=== PATIENT | female | born 1940 | race Caucasian/White ===

== ENCOUNTER → 2018-04-11 14:37 | Outpatient (CLI) | payer OTHER, MEDICAID, SELFPAY ==
--- NOTE | 2018-04-11 | DI.MG.S_ITS ---
BILATERAL DIGITAL SCREENING MAMMOGRAM 3D/2D WITH CAD: 04/11/2018 CLINICAL: Routine screening. Family history of breast cancer. Personal history of breast cancer. Comparison is made to exams dated: 11/25/2016 mammogram, 12/16/2015 mammogram - [facility], and 12/12/2014 mammogram - [facility]. There are scattered fibroglandular elements in both breasts. Current study was also evaluated with a Computer Aided Detection (CAD) system. There are benign post operative findings in the right breast. There also are benign vascular calcifications in the left breast. There are mole markers on the left breast. No significant masses, calcifications, or other findings are seen in either breast. There has been no significant interval change. IMPRESSION: There is no mammographic evidence of malignancy. A 1 year screening mammogram is recommended. This exam was interpreted at Station ID: [id number]. NOTE: For mammograms, a report in lay terms will be sent to the patient. Approximately 15% of breast malignancies will not be visualized mammographically. In the management of a palpable breast mass, a negative mammogram must not discourage biopsy of a clinically suspicious lesion. Electronically Signed By: Faizan baron/nneka:04/12/2018 19:12:17 copy to: Yasmani Bryant letter sent: Normal Exam ACR BI-RADS Category 2: Benign Finding(s) 3342F
== END ==
PROVIDERS: Family Provider Family Medicine; PCP Family Medicine; Visit Provider Nurse Practitioner Family
DX: Z12.31 Encounter for screening mammogram for malignant neoplasm of breast (principal); Z85.3 Personal history of malignant neoplasm of breast; Z80.3 Family history of malignant neoplasm of breast
CPT/HCPCS: 77063; 77067

== ENCOUNTER → 2020-08-15 11:11 | Outpatient (CLI) | payer MEDICARE, MEDICAID, SELFPAY | PROVIDERS: Family Provider Family Medicine; PCP Family Medicine; Referring Provider Family Medicine; Visit Provider Family Medicine | DX: Z12.31 Encounter for screening mammogram for malignant neoplasm of breast (principal); Z53.8 Procedure and treatment not carried out for other reasons ==

== ENCOUNTER → 2020-09-05 13:03 | Outpatient (CLI) | payer MEDICARE, MEDICAID, SELFPAY ==
--- NOTE | 2020-09-05 13:05 | DI.MG.S_ITS ---
BILATERAL DIGITAL DIAGNOSTIC MAMMOGRAM 3D/2D: 09/05/2020 CLINICAL: Right breast tenderness and mass per doctors order. Comparison is made to exams dated: 04/11/2018 mammogram, 11/25/2016 mammogram, and 12/16/2015 mammogram - [facility]. There are scattered fibroglandular elements in both breasts. There are benign post operative findings in the right breast. No significant masses, calcifications, or other findings are seen in either breast. IMPRESSION: INCOMPLETE: NEEDS ADDITIONAL IMAGING EVALUATION There is no abnormality seen in the right breast to correspond with the palpable abnormality, however, ultrasound is recommended. Targeted ultrasound is recommended for further evaluation, which will be scheduled immediately following this exam. This exam was interpreted at Station ID: [id number]. NOTE: For mammograms, a report in lay terms will be sent to the patient. Approximately 15% of breast malignancies will not be visualized mammographically. In the management of a palpable breast mass, a negative mammogram must not discourage biopsy of a clinically suspicious lesion. Electronically Signed By: Geremias lorenzana/nneka:09/05/2020 13:50:25 copy to: Yasmani Bryant ACR BI-RADS Category 0: Incomplete [id number]
--- NOTE | 2020-09-05 13:05 | DI.US.S_ITS ---
LIMITED ULTRASOUND OF RIGHT BREAST: 09/05/2020 CLINICAL: Palpable right breast lump x 2 felt by clinician. Pain. Comparison is made to exams dated: 09/05/2020 mammogram, 04/11/2018 mammogram, 11/25/2016 mammogram, and 12/16/2015 mammogram - [facility]. Real-time ultrasound of the right breast 2 o'clock and 6 o'clock regions was performed. Sawant scale images of the real-time examination were reviewed. No significant abnormalities were seen sonographically in the right breast. IMPRESSION: NEGATIVE There is no sonographic evidence of malignancy. There is no abnormality seen in the right breast to correspond with the palpable abnormality, however, clinical correlation is recommended. A 1 year screening mammogram is recommended. This exam was interpreted at Station ID: [id number]. Electronically Signed By: Geremias lorenzana/nneka:09/05/2020 14:02:18 copy to: Yasmani Bryant letter sent: Clinical Evaluation Ultrasound BI-RADS: 1 Negative
== END ==
PROVIDERS: Family Provider Family Medicine; PCP Family Medicine; Referring Provider Family Medicine; Visit Provider Family Medicine
DX: R92.8 Other abnormal and inconclusive findings on diagnostic imaging of breast (principal); N61.0 Mastitis without abscess
CPT/HCPCS: 76642; 77066; G0279

== ENCOUNTER 2021-03-12 14:24 | Outpatient (RCR) | payer MEDICARE, MEDICAID, SELFPAY ==
--- NOTE | 2021-03-12 16:00 | PT.OPPOC ---
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) Frequency of micturition (03/12/21) Nocturia (03/12/21) Visit Care Team Role Provider Type Yunior Ruiz DO Family Provider Physician Primary Care Provider Specialty: Family Practice Address: [address] [place] [address], [id number] Email: [email or web address] Gilbert Owen DO Attending Provider Physician Referring Provider Specialty: [facility] Address: [address] [place] [address], [address] Email: Plan Of Care PT-OP-T Assessment and Plan Start: 02/24/21 10:38 Freq: Status: Active Protocol: Document 03/12/21 14:30 AMB (Rec: 03/16/21 11:26 AMB [email or web address]) Physical Therapy Assessment Rehab Potential Rehabilitation Potential Fair Evaluation Complexity Number of Personal Factors/Comorbidities 1-2 Number of Body Systems Impaired 4 or More Clinical Presentation at Evaluation Evolving Impairments Impairments Activity Tolerance,Functional Activities,Functional Mobility ,Strength Goals One Impairment incontinence Short Term Goal (STG) Bri Mckay will be on a bathroom schedule to decrease urinary and fecal incontinence. STG Duration 4 weeks Fpc Goal (LTG) Bri Mckay's will be independent with behavioral changes to assist her with her continence (reduced dairy, increased fluid, ILU massage). LTG Duration 8 weeks Assessment Summary Assessment Deferred an internal assessment today for a number of reasons. Due to Bri Mckay's progressive dementia, she is really unable to consent to an internal assessment. When asked to contract her pelvic floor muscles (both this therapist and her attempted to use a wide range of verbal cues) she was completely unable to understand the concept. This therapist did provide education to Bri Mckay's regarding a set bathroom schedule of every 1-2 hours, decreasing fluid intake in the evenings to decrease nocturia , and using alternate laxatives rather than bowel irritants (milk) to help Bri Mckay have a bowel movement if she does become constipated. Also provided with a written HEP of pelvic floor strengthening so that Bri Mckay can do those exercises with the physical therapist that she has on [facility]. Physical Therapy Plan Hold Physical Therapy Reason For Hold On hold due to pt living on [place], Next Visit Focus/Plan Next Visit Plan Pt on hold for now, if and pt would like further treatment, treatment would consist of behavioral (diet/ toileting timing) changes that her can institute and instruction in ILU massage for constipation, instruction in fluid consumption, etc. Pt is not really a candidate for pelvic floor strengthening due to progressive nature of her dementia. Electronically Signed by: Samia Vazquez, PT 03/16/21 [id number] Please Sign and Return: I have reviewed this Plan of Care and certify that the skilled therapy services above are required to meet the patient?s needs. Physician Signature Date Printed Name and Credentials Clinical Instructor Signature Printed Name and Credentials
--- NOTE | 2021-03-12 16:00 | PT.OIE ---
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) Frequency of micturition (03/12/21) Nocturia (03/12/21) Past Medical History (Last Updated 01/15/21 @ 13:13 by Gilbert Owen DO) Breast cancer (~2008) Dementia (~2016) Effusion, right knee Hearing loss (~1979) History of breast surgery (~2010) History of urinary incontinence (~1989) Irritable bowel syndrome (~1999) Mastitis, right, acute Measles (~1949) Multiple sclerosis (02/16/03) Mumps (~1950) Pelvic floor dysfunction in female S/P hysterectomy Skin cancer (~2007) Tear of meniscus of right knee Past Surgical History (Last Reviewed 06/18/20 @ 15:29 by Meaghan Espinal MD) Anesthesia History of breast surgery (~2010) S/P hysterectomy Visit Care Team Role Provider Type Yunior Ruiz DO Family Provider Physician Primary Care Provider Specialty: Family Practice Address: [address] [place] [address], [address] Email: [email or web address] Attending Provider Physician Referring Provider Specialty: [facility] Address: [address] [place] [address], [address] Email: Physical Therapy Initial Evaluation PT-OP-A Visit Information Start: 02/24/21 10:38 Freq: Status: Active Protocol: Document 03/12/21 14:30 AMB (Rec: 03/12/21 16:29 AMB [email or web address]) Out-Patient Physical Therapy Visit Information Visit Information Visit Type Initial Evaluation Visit Start Time 14:30 Visit Stop Time 15:15 Total Visit Minutes 30 Visit Number 1 PT-OP-B Current Condition Start: 02/24/21 10:38 Freq: Status: Active Protocol: Document 03/12/21 14:30 AMB (Rec: 03/16/21 11:17 AMB [email or web address]) Current Condition History of Current Condition Onset Date chronic Current Complaints incontinence fecal and urinary History of Current Condition Bri's provides all of the history as he is her caregiver. She has dementia. This therapist attempted to engage with her but she was unable to undertand why she was in physical therapy. Bri has a long history of MS and has been self catheterizing 2x /day for the past 50 years. She does have a recent history of UTI. She also has IBS, which for her is a mixture of constipation and diarrhea. Her does report that she used to say she was allergic to dairy, but he does feed her dairy and [place]uv[place] food now if she gets constipated to break the damn . His biggest concern is that she is on the toilet multiple times per day, sometimes every hour, but even with that she continues to have incontinence both urinary and fecal. She has urinary incontinence at night, and sometimes wets through the many pads they put down on the bed and that she wears. He states that they are attending PT because their son wanted them to. Prior Functional Status Baseline Function- ADL's Needs Assist Baseline Function- Mobility Needs Assist Personal Factors Other Personal Factors That May Effect Dementia, MS, long history of Therapy/Recovery pessary usage, lives in the [facility] PT-OP-T Assessment and Plan Start: 02/24/21 10:38 Freq: Status: Active Protocol: Document 03/12/21 14:30 AMB (Rec: 03/16/21 11:26 AMB [email or web address]) Physical Therapy Assessment Rehab Potential Rehabilitation Potential Fair Evaluation Complexity Number of Personal Factors/Comorbidities 1-2 Number of Body Systems Impaired 4 or More Clinical Presentation at Evaluation Evolving Impairments Impairments Activity Tolerance,Functional Activities,Functional Mobility ,Strength Goals One Impairment incontinence Short Term Goal (STG) Bri Mckay will be on a bathroom schedule to decrease urinary and fecal incontinence. STG Duration 4 weeks Custodial Goal (LTG) Bri Mckay's will be independent with behavioral changes to assist her with her continence (reduced dairy, increased fluid, ILU massage). LTG Duration 8 weeks Assessment Summary Assessment Deferred an internal assessment today for a number of reasons. Due to Bri Mckay's progressive dementia, she is really unable to consent to an internal assessment. When asked to contract her pelvic floor muscles (both this therapist and her attempted to use a wide range of verbal cues) she was completely unable to understand the concept. This therapist did provide education to Bri Mckay's regarding a set bathroom schedule of every 1-2 hours, decreasing fluid intake in the evenings to decrease nocturia , and using alternate laxatives rather than bowel irritants (milk) to help Bri Mckay have a bowel movement if she does become constipated. Also provided with a written HEP of pelvic floor strengthening so that Bri Mckay can do those exercises with the physical therapist that she has on [facility]. Physical Therapy Plan Hold Physical Therapy Reason For Hold On hold due to pt living on [place], Next Visit Focus/Plan Next Visit Plan Pt on hold for now, if and pt would like further treatment, treatment would consist of behavioral (diet/ toileting timing) changes that her can institute and instruction in ILU massage for constipation, instruction in fluid consumption, etc. Pt is not really a candidate for pelvic floor strengthening due to progressive nature of her dementia.
--- NOTE | 2021-03-12 16:00 | PT.OPPOC ---
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) Frequency of micturition (03/12/21) Nocturia (03/12/21) Visit Care Team Role Provider Type Yunior Ruiz DO Family Provider Physician Primary Care Provider Specialty: Family Practice Address: [address] [place] [address], [address] Email: [email or web address] Gilbert Owen DO Attending Provider Physician Referring Provider Specialty: [facility] Address: [address] [place] [address], [address] Email: Plan Of Care PT-OP-T Assessment and Plan Start: 02/24/21 10:38 Freq: Status: Active Protocol: Document 03/12/21 14:30 AMB (Rec: 03/16/21 11:26 AMB [email or web address]) Physical Therapy Assessment Rehab Potential Rehabilitation Potential Fair Evaluation Complexity Number of Personal Factors/Comorbidities 1-2 Number of Body Systems Impaired 4 or More Clinical Presentation at Evaluation Evolving Impairments Impairments Activity Tolerance,Functional Activities,Functional Mobility ,Strength Goals One Impairment incontinence Short Term Goal (STG) Bri Mckay will be on a bathroom schedule to decrease urinary and fecal incontinence. STG Duration 4 weeks Longterm Goal (LTG) Bri Mckay's will be independent with behavioral changes to assist her with her continence (reduced dairy, increased fluid, ILU massage). LTG Duration 8 weeks Assessment Summary Assessment Deferred an internal assessment today for a number of reasons. Due to Bri Mckay's progressive dementia, she is really unable to consent to an internal assessment. When asked to contract her pelvic floor muscles (both this therapist and her attempted to use a wide range of verbal cues) she was completely unable to understand the concept. This therapist did provide education to Bri Mckay's regarding a set bathroom schedule of every 1-2 hours, decreasing fluid intake in the evenings to decrease nocturia , and using alternate laxitives rather than bowel irritants (milk) to help Bri Mckay have a bowel movement if she does become constipated. Also provided with a written HEP of pelvic floor strengtheing so that Bri Mckay can do those exercises with the physical therapist that she has on [facility]. Physical Therapy Plan Frequency and Duration Frequency of Treatment 1x/Week Duration of Treatment 12 weeks Plan of Care Start Date 03/12/21 Plan of Care End Date 06/04/21 Therapeutic Interventions Therapeutic Interventions Home Exercise Program,Manual Therapy,Neuromuscular Re- education,Self-Care/Home Management,Therapeutic Activities,Therapeutic Exercises Hold Physical Therapy Reason For Hold On hold due to pt living on [place], Next Visit Focus/Plan Next Visit Plan Pt on hold for now, if and pt would like further treatment, treatment would consist of behavioral (diet/ toileting timing) changes that her can institute and instruction in ILU massage for constipation, instruction in fluid consumption, etc. Pt is not really a candidate for pelvic floor strengthening due to progressive nature of her dementia. Plan of Care Dates Plan of Care Start Date 03/12/21 Plan of Care End Date 06/04/21 Electronically Signed by: Samia Vazquez, PT 03/16/21 [id number] Please Sign and Return: I have reviewed this Plan of Care and certify that the skilled therapy services above are required to meet the patient?s needs. Physician Signature Date Printed Name and Credentials Clinical Instructor Signature Printed Name and Credentials
--- NOTE | 2021-04-07 09:08 | PT.OPDS ---
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) Frequency of micturition (03/12/21) Nocturia (03/12/21) Visit Care Team Role Provider Type Ynuior Ruiz DO Family Provider Physician Primary Care Provider Specialty: Family Practice Address: [address] [place] [address], [address] Email: Gilbert Owen DO Attending Provider Physician Referring Provider Specialty: [facility] Practice Address: [address] [place] [address], [address] Email: Visit Number Visit Number 1 Discharge Summary PT-OP-B Current Condition Start: 02/24/21 10:38 Freq: Status: Active Protocol: Document 03/12/21 14:30 AMB (Rec: 03/16/21 11:17 AMB [email or web address]) Current Condition History of Current Condition Onset Date chronic Current Complaints incontinence fecal and urinary History of Current Condition Bri's provides all of the history as he is her caregiver. She has dementia. This therapist attempted to engage with her but she was unable to undertand why she was in physical therapy. Bri has a long history of MS and has been self catheterizing 2x /day for the past 50 years. She does have a recent history of UTI. She also has IBS, which for her is a mixture of constipation and diarrhea. Her does report that she used to say she was allergic to dairy, but he does feed her dairy and [place]ian food now if she gets constipated to break the damn . His biggest concern is that she is on the toilet multiple times per day, sometimes every hour, but even with that she continues to have incontinence both urinary and fecal. She has urinary incontinence at night, and sometimes wets through the many pads they put down on the bed and that she wears. He states that they are attending PT because their son wanted them to. Prior Functional Status Baseline Function- ADL's Needs Assist Baseline Function- Mobility Needs Assist Personal Factors Other Personal Factors That May Effect Dementia, MS, long history of Therapy/Recovery pessary usage, lives in the [facility] PT-OP-T Assessment and Plan Start: 02/24/21 10:38 Freq: Status: Active Protocol: Document 04/07/21 09:02 AMB (Rec: 04/07/21 09:08 AMB [email or web address]) Physical Therapy Assessment Assessment Summary Assessment Sera was put on hold after her evaluation, but has not scheduled more appointments therefore she is discharged at this time. Pt's might be interested in a new referral if she gets in to assisted living. Physical Therapy Plan Discharge Physical Therapy Discharge Reasons No Longer Attending PT
== END 2021-06-24 09:45 ==
LOC: PHYS 14:24
PROVIDERS: Family Provider Family Medicine; PCP Family Medicine; Referring Provider Family Medicine; Visit Provider Family Medicine
DX: M62.89 Other specified disorders of muscle (principal)
CPT/HCPCS: 97162

== ENCOUNTER → 2022-03-19 14:13 | Outpatient (CLI) | payer MEDICARE, MEDICAID, SELFPAY ==
--- NOTE | 2022-03-19 14:14 | DI.MG.S_ITS ---
BILATERAL DIGITAL SCREENING MAMMOGRAM 3D/2D WITH CAD: 03/19/2022 CLINICAL: Routine screening. Comparison is made to exams dated: 09/05/2020 ultrasound, 09/05/2020 mammogram, 04/11/2018 mammogram, and 11/25/2016 mammogram - [facility]. There are scattered areas of fibroglandular density in both breasts (category b / 25%-50% glandular tissue). Current study was also evaluated with a Computer Aided Detection (CAD) system. There are benign post operative findings in the right breast. No significant masses, calcifications, or other findings are seen in either breast. There has been no significant interval change. IMPRESSION: BENIGN There is no mammographic evidence of malignancy. A 1 year screening mammogram is recommended. This exam was interpreted at Station ID: [id number]. NOTE: For mammograms, a report in lay terms will be sent to the patient. Approximately 15% of breast malignancies will not be visualized mammographically. In the management of a palpable breast mass, a negative mammogram must not discourage biopsy of a clinically suspicious lesion. Electronically Signed By: Geremias lorenzana/nneka:03/19/2022 15:33:09 copy to: Yasmani Bryant letter sent: Normal Exam ACR BI-RADS Category 2: Benign Finding(s) 3342F
== END ==
PROVIDERS: Family Provider Family Medicine; PCP Family Medicine; Referring Provider Physician Assistant Medical; Visit Provider Physician Assistant Medical
DX: M81.0 Age-related osteoporosis without current pathological fracture (principal); Z12.31 Encounter for screening mammogram for malignant neoplasm of breast; Z13.820 Encounter for screening for osteoporosis; Z78.0 Asymptomatic menopausal state; F03.90 Unspecified dementia, unspecified severity, without behavioral disturbance, psychotic disturbance, mood disturbance, and anxiety; G35 Multiple sclerosis
CPT/HCPCS: 77063; 77067; 77080

== ENCOUNTER 2022-03-25 08:54 | Emergency (ER) | payer MEDICARE, MEDICAID, SELFPAY ==
[2022-03-25 09:18] VITALS: BP 173/79; PULSE 87; RESP 15; TEMP 35.8; O2SAT 96; BMI 23.9
--- NOTE | 2022-03-25 11:42 | ED.ABDPAIN ---
HPI - Abdominal Pain General Chief Complaint: Abdominal Pain Stated Complaint: all stopped up No BM Time Seen by Provider: 03/25/22 10:32 Source: patient Mode of arrival: Wheelchair Limitations: no limitations History of Present Illness HPI narrative: This 82-year-old patient has a history of hysterectomy, and cystocele. She is been previously fitted for a pessary. About 1 month ago she developed a prolapsed rectum. The rectum has been out at least a couple times. She underwent reduction in [facility] yesterday. She has been seeing an dedicated truck driver. Her PCM referred her to [facility]. She was on the [employer] head at home yesterday, she had diarrhea and incontinence. She is not been bleeding. At this time she is no abdominal pain. Related Data Home Medications Medication Instructions Recorded Confirmed CALCIUM CARBONATE (TUMS ) 500 mg PO QDAY ##0 06/23/12 12/30/21 CHOLECALCIFEROL (VITAMIN D3) 400 unit PO QDAY ##0 06/23/12 12/30/21 (Vitamin D3) Fish Oil (Fish Oil 500 MG Softgel) 500 mg PO QDAY ##0 06/23/12 12/30/21 mometasone 0.1 % topical cream 1 brittany topical BID ##0 06/29/16 12/30/21 aspirin 81 mg tablet,delayed 81 mg PO QDAY ##0 11/05/16 12/30/21 release hydrocortisone 1 % topical cream 1 applic topical BID PRN 08/27/20 12/30/21 (Anti-Itch (hydrocortisone)) memantine 10 mg tablet 10 mg PO BID 03/05/21 12/30/21 Previous Rx's Medication Instructions Recorded oxyquinoline 0.025 %-sodium lauryl 1 ea vaginal .weekly pessary 06/18/20 sulfate 0.01 % vaginal gel maintenance #113.4 grams Booster-Total Dry Pads #1 ea 07/14/21 trospium 20 mg tablet 20 mg PO BIDAC #60 tabs 09/03/21 trospium 20 mg tablet 20 mg PO BID #180 tabs 09/05/21 donepezil 10 mg tablet 10 mg PO DAILY #90 tabs 12/03/21 allopurinol 100 mg tablet 100 mg PO DAILY #14 tabs 01/23/22 allopurinol 100 mg tablet See Rx Instructions .Route 01/23/22 .COMPLEX #90 tabs docusate sodium 100 mg capsule 100 mg PO DAILY #90 caps 03/25/22 (Colace) Allergies Allergy/AdvReac Type Severity Reaction Status Date / Time Penicillins [PENICILLINS] Allergy Mild RASH Verified 03/25/22 09:22 indomethacin AdvReac Severe do not Verified 03/25/22 09:22 dispense codeine AdvReac Unknown drowsiness Verified 03/25/22 09:22 cortisone AdvReac Unknown hives Verified 03/25/22 09:22 Review of Systems Review of Systems ROS Unobtainable: All systems reviewed & are unremarkable except as noted in HPI and below Constitutional Constitutional: Denies anorexia, Denies body ache(s), Denies chills, Reports fatigue and Denies fever(s) Cardiovascular Cardiovascular: Denies chest pain, Denies rapid heart rate and Denies dyspnea Respiratory Respiratory: Denies cough and Denies dyspnea Gastrointestinal Gastrointestinal: Denies abdominal pain, Reports diarrhea and Denies nausea Comments: Rectal prolapse as noted HPI. Genitourinary Genitourinary: Denies dysuria Musculoskeletal Musculoskeletal: Denies back pain and Denies arthralgias Integumentary/Breasts Skin/Breast: Denies rash Neurologic Neurologic: Reports system reviewed and no additional complaints, except as documented Endocrine Endocrine: Reports fatigue Hematologic/Lymphatic On Anticoagulants: No Patient History Medical History Breast cancer (~2008) Cystocele Dementia (~2017) Effusion, right knee Fecal incontinence alternating with constipation Hearing loss (~1979) History of urinary incontinence (~1989) Irritable bowel syndrome (~1999) Mastitis, right, acute Measles (~1950) Multiple sclerosis (02/16/03) Mumps (~1950) Pelvic floor dysfunction in female Skin cancer (~2007) Tear of meniscus of right knee Surgical History Anesthesia History of breast surgery (~2010) S/P hysterectomy Family History Brother Bowel obstruction Family/Other No problems noted. Social History Smoking Status: Never smoker Smoking Status: Never smoker Exam Initial Vital Signs Initial Vital Signs: Vital Signs Temperature 96.4 F L 03/25/22 09:18 Pulse Rate 87 03/25/22 09:18 Respiratory Rate 15 03/25/22 09:18 Blood Pressure 173/79 H 03/25/22 09:18 Pulse Oximetry 96 03/25/22 09:18 Oxygen Delivery Method 03/25/22 09:18 Const General: cooperative and comfortable Other: Hard of hearing HENIL Head: normocephalic and atraumatic Resp Auscultation: clear to auscultation bilaterally Cardio Rate: regular rate Rhythm: regular rhythm Heart Sounds: S1 normal, S2 normal and no murmurs GI Inspection: normal to inspection Palpation: soft, No mass and No tender Rectal Exam: visual inspection normal Other: No prolapse at this time. Rectum is normal. No masses. No impaction. Stool was heme-negative. Back/Spine/Pelvis Back: normal to inspection and No CVA tenderness Course Course Course Narrative: The patient was discussed with the on-call physician, Dr. Peter. He agrees to surgical consultation. Patient is advised to call for appointment. Vital Signs Vital signs: Vital Signs - 8 hr 03/25/22 15:05 Pulse Rate 84 Respiratory Rate 97 H Blood Pressure 171/73 H Pulse Oximetry 96 Oxygen Delivery Method Room Air Discharge Plan Departure Patient Disposition: Home Clinical Impression: Rectal prolapse Instructions: Rectal Prolapse Activity Restrictions/Additional Instructions: Colace 1 tablet daily. Definitive care for the prolapsed rectum is surgery. I have contacted Dr. Peter, a surgeon here in [place]. He would be happy to see you. Call him for an appointment. Return to the ER for fever, abdominal pain, or prolapsed rectum that will not reduce.. Prescriptions: New docusate sodium [Colace] 100 mg capsule 100 mg PO DAILY Qty: 90 0RF No Action CALCIUM CARBONATE (TUMS ) 500 mg PO QDAY Qty: 0 CHOLECALCIFEROL (VITAMIN D3) (Vitamin D3) 400 unit PO QDAY Qty: 0 Fish Oil (Fish Oil 500 MG Softgel) 500 mg PO QDAY Qty: 0 mometasone 0.1 % cream 1 brittany Topical BID Qty: 0 aspirin 81 MG tablet,delayed release (DR/EC) 81 mg PO QDAY Qty: 0 (DME) Booster-Total Dry Pads See Rx Instructions .Route .MEDSUPPLY Qty: 1 0RF Rx Instructions: As directed. [facility] #[id number] trospium 20 mg tablet 20 mg PO BID Qty: 180 3RF Rx Instructions: administer on an empty stomach donepezil 10 mg tablet 10 mg PO DAILY Qty: 90 3RF allopurinol 100 mg tablet See Rx Instructions .ROUTE .COMPLEX Qty: 90 1RF Dose Instruction: TAKE 1 TABLET DAILY Rx Instructions: TAKE 1 TABLET DAILY allopurinol 100 mg tablet 100 mg PO DAILY Qty: 14 0RF oxyquinoline-sod.lauryl sulfat 0.025-0.01 % gel 1 ea vaginal .weekly Qty: 113.4 3RF Rx Instructions: Apply 1g vaginally once weekly. memantine 10 mg tablet 10 mg PO BID hydrocortisone [Anti-Itch (HC)] 1 % cream 1 applic topical BID PRN trospium 20 mg tablet 20 mg PO BIDAC Qty: 60 0RF Referrals: Naresh Peter MD [Physician] - Yunior Ruiz DO [Primary Care Provider] - Visit Report Forms: Patient Portal/API
[2022-03-25 15:05] VITALS: BP 171/73; PULSE 84; RESP 97; O2SAT 96
== END 2022-03-25 12:10 | disposition home or self-care (01) ==
PROVIDERS: Emergency Provider Emergency Medicine; Family Provider Family Medicine; PCP Family Medicine
DX: K62.3 Rectal prolapse (principal)
CPT/HCPCS: 99281

== ENCOUNTER → 2022-05-12 13:09 | Outpatient (CLI) | payer MEDICARE, MEDICAID, SELFPAY | PROVIDERS: Family Provider Family Medicine; PCP Family Medicine; Visit Provider Family Medicine | DX: N30.01 Acute cystitis with hematuria (principal) | CPT/HCPCS: 87077; 87086 ==

== ENCOUNTER 2022-05-12 14:05 | Emergency (ER) | payer MEDICARE, MEDICAID, SELFPAY ==
[2022-05-12] VITALS (38 sets, daily range): BP systolic 101–173; BP diastolic 58–79; PULSE 72–91; RESP 13–34; TEMP 36.5–36.8; O2SAT 92–98
--- NOTE | 2022-05-12 14:33 | DI.RAD.S_ITS ---
PROCEDURE: XR CHEST 1V INDICATIONS: suspected sepsis TECHNIQUE: One view of the chest was acquired. COMPARISON: [facility], CR, XR CHEST 1 VIEW, 03/08/2021, 21:12. [facility], CR, CHEST 2 VIEW, 09/03/2006, 13:00. FINDINGS: Surgical changes and devices: Right axillary clips are seen. Cholecystectomy clips are seen. Lungs and pleura: On this semiupright portable chest examination, no large pneumothorax or large pleural effusions are seen. No focal infiltrates are seen. Low lung volumes are noted. This causes a crowded appearance to the lung markings and limits evaluation. Mediastinum: The cardiac contours are within normal limits. The aorta demonstrates calcification and tortuosity. Bones and chest wall: Age-appropriate bony degenerative changes are seen. No suspicious bony lesions. Overlying soft tissues appear unremarkable. IMPRESSION: Limited study with low lung volumes, without focal infiltrates. Dictated by: Kapil Bansal M.D. on 05/12/2022 at 13:57 Approved by: Kapil Bansal M.D. on 05/12/2022 at 13:58
[2022-05-12 14:52] LABS: INR 1.1 (0.9-1.3); Prothrombin Time 12.6 SECONDS (10.1-12.7)
[2022-05-12 14:55] LABS: PTT Partial Thromboplastin Tim 27 SECONDS (26-36)
[2022-05-12 15:01] LABS: Add Manual Diff / Slide Review NO; Basophils Absolute Auto 0 /uL (0-100); Basophils Percent Auto 0.4 % (0-2); Eosinophils Absolute Auto 0 /uL (0-450); Eosinophils Percent Auto 0.2 % (2-4); Hematocrit 38.7 % (36-46); Hemoglobin 12.8 g/dL (12.0-16.0); Lymphocytes Absolute Auto 1000 /uL (1100-4500); Lymphocytes Percent Auto 23.3 % (25-40); Mean Corpuscular Volume 90.8 fL (80-100); Monocytes Absolute Auto 400 /uL (0-900); Monocytes Percent Auto 8.9 % (3-14); Neutrophils Absolute Auto 2800 /uL (1500-7000); Neutrophils Percent Auto 67.2 % (50-75); Platelet Count 154 X10^3/uL (150-400); Red Blood Cell Count 4.26 X10^6/uL (4.0-5.2); White Blood Cell Count 4.1 X10^3/uL (4.5-11.0)
[2022-05-12 15:06] LABS: Creatine Kinase 73 U/L (30-135)
[2022-05-12 15:08] LABS: Alanine Aminotransferase 19 IU/L (<35); Albumin 4.2 g/dL (3.5-5.0); Albumin Globulin Ratio 1.1 (1.0-2.8); Alkaline Phosphatase 85 U/L (38-126); Aspartate Aminotransferase 21 IU/L (14-36); Bilirubin Total 0.5 mg/dL (0.2-1.3); Blood Urea Nitrogen 17 mg/dL (7-17); Calcium 9.2 mg/dL (8.4-10.2); Carbon Dioxide 30 mmol/L (22-32); Chloride 99 mmol/L (98-107); Estimated Glomerular Filt Rate > 60 mL/min (>60); Globulin 3.7 g/dL (1.7-4.1); Glucose 157 mg/dL (80-110); HEMOLYSIS < 15 (0-50); Lipase 63 U/L (23-300); Potassium 3.6 mmol/L (3.4-5.1); Sodium 138 mmol/L (137-145); Total Protein 7.9 g/dL (6.3-8.2)
[2022-05-12 15:19] LABS: NT-proBNP (BNP-Adult 18+) 408 pg/mL (<450); Troponin I < 0.012 ng/mL (0.01-0.034)
[2022-05-12 15:21] LABS: Lactate (Lactic Acid) 2.3 mmol/L (0.7-2.1)
--- NOTE | 2022-05-12 15:24 | PC.NURSE ---
RT at bedside
[2022-05-12 15:25] LABS: Procalcitonin 0.07 ng/mL (<0.5)
--- NOTE | 2022-05-12 15:30 | PC.NURSE ---
Lab at bedside for blood draw
[2022-05-12 15:32] LABS: Influenza A - CEPHEID Flu A NEGATIVE (NEGATIVE); Influenza B - CEPHEID Flu B NEGATIVE (NEGATIVE); Respiratory Syncytial Virus Negative (Negative)
[2022-05-12 15:37] LABS: Appearance Urine UA CLEAR; Bilirubin Urine UA NEGATIVE (NEGATIVE); Color Urine UA YELLOW; Glucose Urine UA TRACE g/dL (Negative); Ketones Urine UA TRACE (NEGATIVE); Leukocyte Esterase Urine UA TRACE (NEGATIVE); Nitrite Urine UA POSITIVE (Negative); Occult Blood Urine UA 2+ (Negative); Protein Urine UA 1+ (Negative); Urobilinogen Urine UA 0.2 E.U./dL (0.2)
[2022-05-12 15:38] LABS: pH Urine UA 5.5 (4.5-8.0)
[2022-05-12] MEDS: SODIUM CHLORIDE 0.9% 1,000 ML 1000 ML IV (15:40)
[2022-05-12 15:50] LABS: Amorphous Sediment Urine 2+; Bacteria Urine Moderate (10-30); Culture Indicated Urine Specimen Cultured; RBC Urine 1-5/HPF (0-5/HPF); Squamous Epithelial Cell Urine 1-5 /HPF (0-5/HPF); WBC Urine 5-10/HPF (0-5/HPF)
[2022-05-12 15:51] LABS: COVID-19 CEPHEID 4-PLEX PCR Negative (Negative)
--- NOTE | 2022-05-12 16:00 | PC.NURSE ---
Readjusted in the bed - no needs voiced - NAD
--- NOTE | 2022-05-12 16:00 | PC.NURSE ---
Resting quietly in NAD - no needs voiced - PWD with respirations equal and unlabored bilaterally - occasional cough noted - weak
--- NOTE | 2022-05-12 16:30 | PC.NURSE ---
Report to RODGER Lund for break relief
[2022-05-12 16:42] LABS: Reflexed Lactate in 2 Hours Y
--- NOTE | 2022-05-12 17:00 | PC.NURSE ---
Report received - assumed care of pt at this time
[2022-05-12] MEDS: cefTRIAXone 2,000 MG in SODIUM CHLORIDE 0.9% 100 ML 200 MG IV (17:19)
[2022-05-12 17:23] LABS: Lactate 2HR (Lactic Acid Rflx) 1.4 mmol/L (0.7-2.1)
--- NOTE | 2022-05-12 17:30 | PC.NURSE ---
Sitting quietly on the stretcher in NAD - awake - sitting still - no needs voiced
--- NOTE | 2022-05-12 18:11 | ED.GENADULT ---
HPI - General Adult <Torey Oliver DO - Last Filed: 05/14/22 19:46> General Chief complaint: Upper Respiratory Symptoms Stated complaint: PNE/UTI Time Seen by Provider: 05/12/22 16:39 Source: patient and EMS Mode of arrival: EMS History of Present Illness HPI narrative: 82-year-old female who arrived by EMS from [facility] for evaluation of was initially described as possible bronchitis and urinary tract infection. She does self cath. Apparently she does get frequent urinary tract infections. Unsure as when she is ever been on antibiotics in the past. She is also reportedly having a cough and shortness of breath. She did receive IM Rocephin prior to transport. Patient has a history of dementia. It is reported that she is at her baseline mental status. Here in the emergency department she has no specific complaints reported to myself. She is unsure as to who called the paramedics. Related Data Home Medications Medication Instructions Recorded Confirmed aspirin 81 mg tablet,delayed 81 mg PO QDAY ##0 11/05/16 05/12/22 release memantine 10 mg tablet 10 mg PO BID 03/05/21 05/12/22 calcium carbonate 500 mg calcium 500 mg PO DAILY 05/12/22 05/12/22 (1,250 mg) capsule cholecalciferol (vitamin D3) 10 10 mcg PO DAILY 05/12/22 05/12/22 mcg (400 unit) capsule gabapentin 100 mg capsule 100 mg PO DAILY 05/12/22 05/12/22 mirabegron 50 mg tablet,extended 50 mg PO DAILY 05/12/22 05/12/22 release 24 hr (Myrbetriq) omega-3 fatty acids 1 cap PO DAILY 05/12/22 05/12/22 Previous Rx's Medication Instructions Recorded oxyquinoline 0.025 %-sodium lauryl 1 ea vaginal .weekly pessary 06/18/20 sulfate 0.01 % vaginal gel maintenance #113.4 grams Booster-Total Dry Pads #1 ea 07/14/21 trospium 20 mg tablet 20 mg PO BIDAC #60 tabs 09/03/21 donepezil 10 mg tablet 10 mg PO DAILY #90 tabs 12/03/21 allopurinol 100 mg tablet 100 mg PO DAILY #14 tabs 01/23/22 docusate sodium 100 mg capsule 100 mg PO DAILY #90 caps 03/25/22 (Colace) azithromycin 250 mg tablet See Rx Instructions PO .COMPLEX #6 05/12/22 tabs nitrofurantoin 100 mg PO Q12H 8 days #16 caps 05/14/22 monohydrate/macrocrystals 100 mg capsule (Macrobid) Allergies Allergy/AdvReac Type Severity Reaction Status Date / Time Penicillins [PENICILLINS] Allergy Mild RASH Verified 05/12/22 15:26 indomethacin AdvReac Severe do not Verified 05/12/22 15:26 dispense codeine AdvReac Unknown drowsiness Verified 05/12/22 15:26 cortisone AdvReac Unknown hives Verified 05/12/22 15:26 Review of Systems <Torey Oliver DO - Last Filed: 05/14/22 19:46> Constitutional Constitutional: Denies fever(s) ENT Ears, Nose, Mouth, and Throat: Reports system reviewed and no additional complaints, except as documented Cardiovascular Cardiovascular: Denies chest pain Respiratory Respiratory: Reports system reviewed and no additional complaints, except as documented Gastrointestinal Gastrointestinal: Reports system reviewed and no additional complaints, except as documented Genitourinary Genitourinary: Reports system reviewed and no additional complaints, except as documented Integumentary/Breasts Skin/Breast: Reports system reviewed and no additional complaints, except as documented Neurologic Neurologic: Reports system reviewed and no additional complaints, except as documented Hematologic/Lymphatic On Anticoagulants: No Patient History <Torey Oliver DO - Last Filed: 05/14/22 19:46> Medical History Acute bronchitis Breast cancer (~2008) Cystocele Dementia (~2016) Effusion, right knee Fecal incontinence alternating with constipation Hearing loss (~1979) History of urinary incontinence (~1989) Irritable bowel syndrome (~1999) Mastitis, right, acute Measles (~1949) Multiple sclerosis (02/16/03) Mumps (~1950) Pelvic floor dysfunction in female Pessary maintenance Skin cancer (~2007) Tear of meniscus of right knee Urinary incontinence Surgical History Anesthesia History of breast surgery (~2010) S/P hysterectomy Family History Brother Bowel obstruction Family/Other No problems noted. Social History marital status: household members: spouse occupational status: previously employed Smoking Status: Never smoker alcohol intake: current Smoking Status: Never smoker alcohol intake frequency: other Substance Use Type: does not use Exam <DO Cheyenne Gibson Last Filed: 05/14/22 19:46> Initial Vital Signs Initial Vital Signs: Vital Signs Temperature 97.7 F 05/12/22 14:05 Pulse Rate 90 05/12/22 14:05 Respiratory Rate 24 05/12/22 14:05 Blood Pressure 119/58 L 05/12/22 14:05 Pulse Oximetry 94 05/12/22 14:05 Oxygen Delivery Method 05/12/22 14:05 Const General: cooperative and No ill appearing HENMT Head: normal to inspection and normocephalic Resp Effort & Inspection: normal respiratory effort Auscultation: clear to auscultation bilaterally Cardio Rate: regular rate Rhythm: regular rhythm GI Inspection: normal to inspection Other: Alva catheter in place Skin General: no rashes or lesions noted Neuro General: patient alert, patient awake and moves all extremities Speech: speech normal <Drea Meza DO - Last Filed: 05/18/22 07:11> Initial Vital Signs Initial Vital Signs: Vital Signs Temperature 97.7 F 05/12/22 14:05 Pulse Rate 90 05/12/22 14:05 Respiratory Rate 24 05/12/22 14:05 Blood Pressure 119/58 L 05/12/22 14:05 Pulse Oximetry 94 05/12/22 14:05 Oxygen Delivery Method 05/12/22 14:05 <Belem Menjivar DO - Last Filed: 05/15/22 07:25> Initial Vital Signs Initial Vital Signs: Vital Signs Temperature 97.7 F 05/12/22 14:05 Pulse Rate 90 05/12/22 14:05 Respiratory Rate 24 05/12/22 14:05 Blood Pressure 119/58 L 05/12/22 14:05 Pulse Oximetry 94 05/12/22 14:05 Oxygen Delivery Method 05/12/22 14:05 Course <DO Cheyenne Gbison Last Filed: 05/14/22 19:46> Orders Ordered: Discontinued Medications Acetaminophen (Acetaminophen 325 Mg Tablet) 650 mg PO NOW ONE Stop: 05/13/22 10:26 Last Admin: 05/13/22 11:37 Dose: 650 mg Documented By: MLM Allopurinol (Allopurinol 100 Mg Tablet) 100 mg PO DAILY [facility] Last Admin: 05/14/22 10:13 Dose: 100 mg Documented By: Admin: 05/13/22 09:55 Dose: 100 mg Documented By: MLM Aspirin (Aspirin Ec 81 Mg Tablet) 81 mg PO DAILY [facility] Last Admin: 05/14/22 08:37 Dose: 81 mg Documented By: Admin: 05/13/22 09:59 Dose: 81 mg Documented By: MLM Calcium Carbonate (Calcium Carbonate 500 Mg Tab) 500 mg PO DAILY [facility] Last Admin: 05/14/22 10:15 Dose: 500 mg Documented By: Admin: 05/13/22 09:59 Dose: 500 mg Documented By: MLGisela Docusate Sodium (Docusate 100 Mg Capsule) 100 mg PO DAILY [facility] Last Admin: 05/14/22 10:15 Dose: 100 mg Documented By: Admin: 05/13/22 09:55 Dose: 100 mg Documented By: MLGisela Donepezil HCl (Donepezil 5 Mg Tablet) 10 mg PO BEDTIME [facility] Last Admin: 05/13/22 21:08 Dose: 10 mg Documented By: Admin: 05/12/22 22:16 Dose: 10 mg Documented By: TODD Fish Oil (Fish Oil 1,000 Mg Capsule) 1,000 mg PO DAILY [facility] Last Admin: 05/14/22 10:12 Dose: 1,000 mg Documented By: Admin: 05/13/22 09:58 Dose: 1,000 mg Documented By: MLGisela Gabapentin (Gabapentin 100 Mg Capsule) 100 mg PO BEDTIME [facility] Last Admin: 05/13/22 21:08 Dose: 100 mg Documented By: Admin: 05/12/22 22:16 Dose: 100 mg Documented By: TODD Sodium Chloride (Normal Saline 0.9%) 1,000 mls @ 1,000 mls/hr IV BOLUS ONE Stop: 05/12/22 16:34 Last Infusion: 05/12/22 17:06 Dose: 0 mls/hr Documented By: Admin: 05/12/22 15:40 Dose: 1,000 mls/hr Documented By: JOHNNA Ceftriaxone Sodium 2,000 mg/ (Sodium Chloride) 100 mls @ 200 mls/hr IV NOW ONE Stop: 05/12/22 16:40 Last Infusion: 05/12/22 19:30 Dose: 0 mls/hr Documented By: Admin: 05/12/22 17:19 Dose: 200 mls/hr Documented By: TERRANCE Ceftriaxone Sodium 2,000 mg/ (Sodium Chloride) 100 mls @ 200 mls/hr IV DAILY KIM Stop: 05/14/22 09:01 Ceftriaxone Sodium 1,000 mg/ (Sodium Chloride) 100 mls @ 200 mls/hr IV DAILY KIM Stop: 05/14/22 09:01 Last Infusion: 05/14/22 09:58 Dose: 0 mls/hr Documented By: Admin: 05/14/22 08:38 Dose: 200 mls/hr Documented By: Infusion: 05/13/22 10:13 Dose: 0 mls/hr Documented By: MLGisela Admin: 05/13/22 09:58 Dose: 200 mls/hr Documented By: MELCHOR Ceftriaxone Sodium 2,000 mg/ (Sodium Chloride) 100 mls @ 200 mls/hr IV NOW ONE Stop: 05/14/22 09:23 Last Admin: 05/14/22 11:42 Dose: Not Given Documented By: TERRANCE Ceftriaxone Sodium 1,000 mg/ (Sodium Chloride) 100 mls @ 200 mls/hr IV NOW ONE Stop: 05/14/22 09:24 Last Admin: 05/14/22 11:43 Dose: Not Given Documented By: TERRANCE Memantine (Memantine Hcl 5 Mg Tablet) 10 mg PO BID [facility] Last Admin: 05/14/22 10:12 Dose: 10 mg Documented By: Admin: 05/13/22 21:08 Dose: 10 mg Documented By: Admin: 05/13/22 09:59 Dose: 10 mg Documented By: MLGisela Admin: 05/12/22 22:15 Dose: 10 mg Documented By: TODD Pantoprazole Sodium (Pantoprazole Dr 40 Mg Tablet) 40 mg PO DAILY@0700 [facility] Last Admin: 05/14/22 10:13 Dose: 40 mg Documented By: TERRANCE Vitamin D (Cholecalciferol (Vitamin D3) 400 Unit Tablet) 400 unit PO DAILY [facility] Last Admin: 05/14/22 10:14 Dose: 400 unit Documented By: Admin: 05/13/22 09:58 Dose: 400 unit Documented By: MLGisela Vital Signs Vital signs: Vital Signs - 8 hr 05/14/22 12:00 05/14/22 12:00 05/14/22 12:30 Pulse Rate 71 Respiratory Rate 24 Blood Pressure 123/57 L 124/57 L Pulse Oximetry 94 05/14/22 12:30 05/14/22 13:00 05/14/22 13:00 Pulse Rate 68 71 Respiratory Rate 24 24 Blood Pressure 116/59 L Pulse Oximetry 95 95 05/14/22 13:30 05/14/22 13:30 Pulse Rate 74 Respiratory Rate Blood Pressure 129/59 L Pulse Oximetry 94 <Drea Mzea, DO - Last Filed: 05/18/22 07:11> Orders Ordered: Discontinued Medications Acetaminophen (Acetaminophen 325 Mg Tablet) 650 mg PO NOW ONE Stop: 05/13/22 10:26 Last Admin: 05/13/22 11:37 Dose: 650 mg Documented By: MLGisela Allopurinol (Allopurinol 100 Mg Tablet) 100 mg PO DAILY [facility] Last Admin: 05/14/22 10:13 Dose: 100 mg Documented By: Admin: 05/13/22 09:55 Dose: 100 mg Documented By: MLGisela Aspirin (Aspirin Ec 81 Mg Tablet) 81 mg PO DAILY [facility] Last Admin: 05/14/22 08:37 Dose: 81 mg Documented By: Admin: 05/13/22 09:59 Dose: 81 mg Documented By: MLGisela Calcium Carbonate (Calcium Carbonate 500 Mg Tab) 500 mg PO DAILY [facility] Last Admin: 05/14/22 10:15 Dose: 500 mg Documented By: Admin: 05/13/22 09:59 Dose: 500 mg Documented By: MLGisela Docusate Sodium (Docusate 100 Mg Capsule) 100 mg PO DAILY [facility] Last Admin: 05/14/22 10:15 Dose: 100 mg Documented By: Admin: 05/13/22 09:55 Dose: 100 mg Documented By: MLGisela Donepezil HCl (Donepezil 5 Mg Tablet) 10 mg PO BEDTIME [facility] Last Admin: 05/13/22 21:08 Dose: 10 mg Documented By: Admin: 05/12/22 22:16 Dose: 10 mg Documented By: TODD Fish Oil (Fish Oil 1,000 Mg Capsule) 1,000 mg PO DAILY [facility] Last Admin: 05/14/22 10:12 Dose: 1,000 mg Documented By: Admin: 05/13/22 09:58 Dose: 1,000 mg Documented By: MELCHOR Gabapentin (Gabapentin 100 Mg Capsule) 100 mg PO BEDTIME [facility] Last Admin: 05/13/22 21:08 Dose: 100 mg Documented By: Admin: 05/12/22 22:16 Dose: 100 mg Documented By: TODD Sodium Chloride (Normal Saline 0.9%) 1,000 mls @ 1,000 mls/hr IV BOLUS ONE Stop: 05/12/22 16:34 Last Infusion: 05/12/22 17:06 Dose: 0 mls/hr Documented By: Admin: 05/12/22 15:40 Dose: 1,000 mls/hr Documented By: JOHNNA Ceftriaxone Sodium 2,000 mg/ (Sodium Chloride) 100 mls @ 200 mls/hr IV NOW ONE Stop: 05/12/22 16:40 Last Infusion: 05/12/22 19:30 Dose: 0 mls/hr Documented By: Admin: 05/12/22 17:19 Dose: 200 mls/hr Documented By: TERRANCE Ceftriaxone Sodium 2,000 mg/ (Sodium Chloride) 100 mls @ 200 mls/hr IV DAILY KIM Stop: 05/14/22 09:01 Ceftriaxone Sodium 1,000 mg/ (Sodium Chloride) 100 mls @ 200 mls/hr IV DAILY KIM Stop: 05/14/22 09:01 Last Infusion: 05/14/22 09:58 Dose: 0 mls/hr Documented By: Admin: 05/14/22 08:38 Dose: 200 mls/hr Documented By: Infusion: 05/13/22 10:13 Dose: 0 mls/hr Documented By: Admin: 05/13/22 09:58 Dose: 200 mls/hr Documented By: MELCHOR Ceftriaxone Sodium 2,000 mg/ (Sodium Chloride) 100 mls @ 200 mls/hr IV NOW ONE Stop: 05/14/22 09:23 Last Admin: 05/14/22 11:42 Dose: Not Given Documented By: TERRANCE Ceftriaxone Sodium 1,000 mg/ (Sodium Chloride) 100 mls @ 200 mls/hr IV NOW ONE Stop: 05/14/22 09:24 Last Admin: 05/14/22 11:43 Dose: Not Given Documented By: TERRANCE Memantine (Memantine Hcl 5 Mg Tablet) 10 mg PO BID [facility] Last Admin: 05/14/22 10:12 Dose: 10 mg Documented By: Admin: 05/13/22 21:08 Dose: 10 mg Documented By: Admin: 05/13/22 09:59 Dose: 10 mg Documented By: Admin: 05/12/22 22:15 Dose: 10 mg Documented By: TODD Pantoprazole Sodium (Pantoprazole Dr 40 Mg Tablet) 40 mg PO DAILY@0700 [facility] Last Admin: 05/14/22 10:13 Dose: 40 mg Documented By: TERRANCE Vitamin D (Cholecalciferol (Vitamin D3) 400 Unit Tablet) 400 unit PO DAILY [facility] Last Admin: 05/14/22 10:14 Dose: 400 unit Documented By: Admin: 05/13/22 09:58 Dose: 400 unit Documented By: MELCHOR Vital Signs Vital signs: Vital Signs - 8 hr 05/14/22 12:00 05/14/22 12:00 05/14/22 12:30 Pulse Rate 71 Respiratory Rate 24 Blood Pressure 123/57 L 124/57 L Pulse Oximetry 94 05/14/22 12:30 05/14/22 13:00 05/14/22 13:00 Pulse Rate 68 71 Respiratory Rate 24 24 Blood Pressure 116/59 L Pulse Oximetry 95 95 05/14/22 13:30 05/14/22 13:30 Pulse Rate 74 Respiratory Rate Blood Pressure 129/59 L Pulse Oximetry 94 <Belem Menjivar, - Last Filed: 05/15/22 07:25> Orders Ordered: Discontinued Medications Acetaminophen (Acetaminophen 325 Mg Tablet) 650 mg PO NOW ONE Stop: 05/13/22 10:26 Last Admin: 05/13/22 11:37 Dose: 650 mg Documented By: MELCHOR Allopurinol (Allopurinol 100 Mg Tablet) 100 mg PO DAILY [facility] Last Admin: 05/14/22 10:13 Dose: 100 mg Documented By: Admin: 05/13/22 09:55 Dose: 100 mg Documented By: MELCHOR Aspirin (Aspirin Ec 81 Mg Tablet) 81 mg PO DAILY [facility] Last Admin: 05/14/22 08:37 Dose: 81 mg Documented By: Admin: 05/13/22 09:59 Dose: 81 mg Documented By: MELCHOR Calcium Carbonate (Calcium Carbonate 500 Mg Tab) 500 mg PO DAILY [facility] Last Admin: 12/22/22 10:15 Dose: 500 mg Documented By: Admin: 05/13/22 09:59 Dose: 500 mg Documented By: MLGisela Docusate Sodium (Docusate 100 Mg Capsule) 100 mg PO DAILY [facility] Last Admin: 05/14/22 10:15 Dose: 100 mg Documented By: Admin: 05/13/22 09:55 Dose: 100 mg Documented By: MELCHOR Donepezil HCl (Donepezil 5 Mg Tablet) 10 mg PO BEDTIME [facility] Last Admin: 05/13/22 21:08 Dose: 10 mg Documented By: Admin: 05/12/22 22:16 Dose: 10 mg Documented By: TODD Fish Oil (Fish Oil 1,000 Mg Capsule) 1,000 mg PO DAILY [facility] Last Admin: 05/14/22 10:12 Dose: 1,000 mg Documented By: Admin: 05/13/22 09:58 Dose: 1,000 mg Documented By: MELCHOR Gabapentin (Gabapentin 100 Mg Capsule) 100 mg PO BEDTIME [facility] Last Admin: 05/13/22 21:08 Dose: 100 mg Documented By: Admin: 05/12/22 22:16 Dose: 100 mg Documented By: TODD Sodium Chloride (Normal Saline 0.9%) 1,000 mls @ 1,000 mls/hr IV BOLUS ONE Stop: 05/12/22 16:34 Last Infusion: 05/12/22 17:06 Dose: 0 mls/hr Documented By: Admin: 05/12/22 15:40 Dose: 1,000 mls/hr Documented By: JOHNNA Ceftriaxone Sodium 2,000 mg/ (Sodium Chloride) 100 mls @ 200 mls/hr IV NOW ONE Stop: 05/12/22 16:40 Last Infusion: 05/12/22 19:30 Dose: 0 mls/hr Documented By: Admin: 05/12/22 17:19 Dose: 200 mls/hr Documented By: TERRANCE Ceftriaxone Sodium 2,000 mg/ (Sodium Chloride) 100 mls @ 200 mls/hr IV DAILY KIM Stop: 05/14/22 09:01 Ceftriaxone Sodium 1,000 mg/ (Sodium Chloride) 100 mls @ 200 mls/hr IV DAILY KIM Stop: 05/14/22 09:01 Last Infusion: 05/14/22 09:58 Dose: 0 mls/hr Documented By: Admin: 05/14/22 08:38 Dose: 200 mls/hr Documented By: Infusion: 05/13/22 10:13 Dose: 0 mls/hr Documented By: Admin: 05/13/22 09:58 Dose: 200 mls/hr Documented By: MELCHOR Ceftriaxone Sodium 2,000 mg/ (Sodium Chloride) 100 mls @ 200 mls/hr IV NOW ONE Stop: 05/14/22 09:23 Last Admin: 05/14/22 11:42 Dose: Not Given Documented By: TERRANCE Ceftriaxone Sodium 1,000 mg/ (Sodium Chloride) 100 mls @ 200 mls/hr IV NOW ONE Stop: 05/14/22 09:24 Last Admin: 05/14/22 11:43 Dose: Not Given Documented By: TERRANCE Memantine (Memantine Hcl 5 Mg Tablet) 10 mg PO BID [facility] Last Admin: 05/14/22 10:12 Dose: 10 mg Documented By: Admin: 05/13/22 21:08 Dose: 10 mg Documented By: Admin: 05/13/22 09:59 Dose: 10 mg Documented By: Admin: 05/12/22 22:15 Dose: 10 mg Documented By: TODD Pantoprazole Sodium (Pantoprazole Dr 40 Mg Tablet) 40 mg PO DAILY@0700 [facility] Last Admin: 05/14/22 10:13 Dose: 40 mg Documented By: TERRANCE Vitamin D (Cholecalciferol (Vitamin D3) 400 Unit Tablet) 400 unit PO DAILY [facility] Last Admin: 05/14/22 10:14 Dose: 400 unit Documented By: Admin: 05/13/22 09:58 Dose: 400 unit Documented By: MELCHOR Vital Signs Vital signs: Vital Signs - 8 hr 05/14/22 12:00 05/14/22 12:00 05/14/22 12:30 Pulse Rate 71 Respiratory Rate 24 Blood Pressure 123/57 L 124/57 L Pulse Oximetry 94 05/14/22 12:30 05/14/22 13:00 05/14/22 13:00 Pulse Rate 68 71 Respiratory Rate 24 24 Blood Pressure 116/59 L Pulse Oximetry 95 95 05/14/22 13:30 05/14/22 13:30 Pulse Rate 74 Respiratory Rate Blood Pressure 129/59 L Pulse Oximetry 94 Medical Decision Making <Torey Lanker, DO - Last Filed: 05/14/22 19:46> Lab Data Lab results reviewed: Yes I reviewed the patient's lab results. Result diagrams: 05/13/22 04:14 05/13/22 04:14 Labs: Lab Results 05/12/22 05/12/22 05/12/22 Range/Units 14:25 14:25 14:25 WBC 4.1 L (4.5-11.0) X10^3/uL RBC 4.26 (4.0-5.2) X10^6/uL Hgb 12.8 (12.0-16.0) g/dL Hct 38.7 (36-46) % MCV 90.8 (80-100) fL MCH 30.0 (26-34) PG MCHC 33.0 (30-36) % RDW 15.0 H (11.6-14.8) % Plt Count 154 (150-400) X10^3/uL Neut % (Auto) 67.2 (50-75) % Lymph % (Auto) 23.3 L (25-40) % [place] % (Auto) 8.9 (3-14) % Eos % (Auto) 0.2 L (2-4) % Baso % (Auto) 0.4 (0-2) % Neut # (Auto) 2800 (5745-5652) /uL Lymph # (Auto) 1000 L (3695-1647) /uL [place] # (Auto) 400 (0-900) /uL Eos # (Auto) 0 (0-450) /uL Baso # (Auto) 0 (0-100) /uL PT 12.6 (10.1-12.7) SECONDS INR 1.1 (0.9-1.3) APTT 27 (26-36) SECONDS Sodium 138 (137-145) mmol/L Potassium 3.6 (3.4-5.1) mmol/L Chloride 99 (98-107) mmol/L Carbon Dioxide 30 (22-32) mmol/L BUN 17 (7-17) mg/dL Creatinine 0.68 (0.52-1.04) mg/dL Estimated GFR > 60 (>60) mL/min BUN/Creatinine Ratio 25.0 H (6-22) Glucose 157 H (80-110) mg/dL Lactate (0.7-2.1) mmol/L Calcium 9.2 (8.4-10.2) mg/dL Total Bilirubin 0.5 (0.2-1.3) mg/dL AST 21 (14-36) IU/L ALT 19 (<35) IU/L Alkaline Phosphatase 85 (38-126) U/L Total Creatine Kinase (30-135) U/L CK-MB (CK-2) CK-MB (CK-2) Rel Index Troponin I (0.01-0.034) ng/mL NT-Pro-B Natriuret Pep (<450) pg/mL Total Protein 7.9 (6.3-8.2) g/dL Albumin 4.2 (3.5-5.0) g/dL Globulin 3.7 (1.7-4.1) g/dL Albumin/Globulin Ratio 1.1 (1.0-2.8) Lipase 63 (23-300) U/L Procalcitonin 0.07 (<0.5) ng/mL Urine Color Urine Appearance Urine pH (4.5-8.0) Ur Specific [place] (1.000-1.035) Urine Protein (Negative) Urine Glucose (UA) (Negative) g/dL Urine Ketones (NEGATIVE) Urine Occult Blood (Negative) Urine Nitrate (Negative) Urine Bilirubin (NEGATIVE) Urine Urobilinogen (0.2) E.U./dL Ur Leukocyte Esterase (NEGATIVE) Urine RBC (0-5/HPF) Urine WBC (0-5/HPF) Ur Squamous Epith Cells (0-5/HPF) Amorphous Sediment Urine Bacteria (None) Ur Culture Indicated? SARS-CoV-2 (PCR) (Negative) Influenza A (RT-PCR) (NEGATIVE) Influenza B (RT-PCR) (NEGATIVE) RSV (PCR) (Negative) 05/12/22 05/12/22 05/12/22 Range/Units 14:25 14:25 14:30 WBC (4.5-11.0) X10^3/uL RBC (4.0-5.2) X10^6/uL Hgb (12.0-16.0) g/dL Hct (36-46) % MCV (80-100) fL MCH (26-34) PG MCHC (30-36) % RDW (11.6-14.8) % Plt Count (150-400) X10^3/uL Neut % (Auto) (50-75) % Lymph % (Auto) (25-40) % [place] % (Auto) (3-14) % Eos % (Auto) (2-4) % Baso % (Auto) (0-2) % Neut # (Auto) (9491-1171) /uL Lymph # (Auto) (8468-5904) /uL [place] # (Auto) (0-900) /uL Eos # (Auto) (0-450) /uL Baso # (Auto) (0-100) /uL PT (10.1-12.7) SECONDS INR (0.9-1.3) APTT (26-36) SECONDS Sodium (137-145) mmol/L Potassium (3.4-5.1) mmol/L Chloride (98-107) mmol/L Carbon Dioxide (22-32) mmol/L BUN (7-17) mg/dL Creatinine (0.52-1.04) mg/dL Estimated GFR (>60) mL/min BUN/Creatinine Ratio (6-22) Glucose (80-110) mg/dL Lactate 2.3 H (0.7-2.1) mmol/L Calcium (8.4-10.2) mg/dL Total Bilirubin (0.2-1.3) mg/dL AST (14-36) IU/L ALT (<35) IU/L Alkaline Phosphatase (38-126) U/L Total Creatine Kinase 73 (30-135) U/L CK-MB (CK-2) TNP CK-MB (CK-2) Rel Index TNP Troponin I < 0.012 (0.01-0.034) ng/mL NT-Pro-B Natriuret Pep 408 (<450) pg/mL Total Protein (6.3-8.2) g/dL Albumin (3.5-5.0) g/dL Globulin (1.7-4.1) g/dL Albumin/Globulin Ratio (1.0-2.8) Lipase (23-300) U/L Procalcitonin (<0.5) ng/mL Urine Color Urine Appearance Urine pH (4.5-8.0) Ur Specific [place] (1.000-1.035) Urine Protein (Negative) Urine Glucose (UA) (Negative) g/dL Urine Ketones (NEGATIVE) Urine Occult Blood (Negative) Urine Nitrate (Negative) Urine Bilirubin (NEGATIVE) Urine Urobilinogen (0.2) E.U./dL Ur Leukocyte Esterase (NEGATIVE) Urine RBC (0-5/HPF) Urine WBC (0-5/HPF) Ur Squamous Epith Cells (0-5/HPF) Amorphous Sediment Urine Bacteria (None) Ur Culture Indicated? SARS-CoV-2 (PCR) Negative (Negative) Influenza A (RT-PCR) Flu a negative (NEGATIVE) Influenza B (RT-PCR) Flu b negative (NEGATIVE) RSV (PCR) Negative (Negative) 05/12/22 05/12/22 05/13/22 Range/Units 15:25 17:05 04:14 WBC 4.7 (4.5-11.0) X10^3/uL RBC 4.12 (4.0-5.2) X10^6/uL Hgb 12.5 (12.0-16.0) g/dL Hct 37.2 (36-46) % MCV 90.3 (80-100) fL MCH 30.2 (26-34) PG MCHC 33.5 (30-36) % RDW 14.9 H (11.6-14.8) % Plt Count 147 L (150-400) X10^3/uL Neut % (Auto) 60.7 (50-75) % Lymph % (Auto) 26.8 (25-40) % [place] % (Auto) 11.3 (3-14) % Eos % (Auto) 0.7 L (2-4) % Baso % (Auto) 0.5 (0-2) % Neut # (Auto) 2900 (4463-8442) /uL Lymph # (Auto) 1300 (7961-4653) /uL [place] # (Auto) 500 (0-900) /uL Eos # (Auto) 0 (0-450) /uL Baso # (Auto) 0 (0-100) /uL PT (10.1-12.7) SECONDS INR (0.9-1.3) APTT (26-36) SECONDS Sodium (137-145) mmol/L Potassium (3.4-5.1) mmol/L Chloride (98-107) mmol/L Carbon Dioxide (22-32) mmol/L BUN (7-17) mg/dL Creatinine (0.52-1.04) mg/dL Estimated GFR (>60) mL/min BUN/Creatinine Ratio (6-22) Glucose (80-110) mg/dL Lactate 1.4 (0.7-2.1) mmol/L Calcium (8.4-10.2) mg/dL Total Bilirubin (0.2-1.3) mg/dL AST (14-36) IU/L ALT (<35) IU/L Alkaline Phosphatase (38-126) U/L Total Creatine Kinase (30-135) U/L CK-MB (CK-2) CK-MB (CK-2) Rel Index Troponin I (0.01-0.034) ng/mL NT-Pro-B Natriuret Pep (<450) pg/mL Total Protein (6.3-8.2) g/dL Albumin (3.5-5.0) g/dL Globulin (1.7-4.1) g/dL Albumin/Globulin Ratio (1.0-2.8) Lipase (23-300) U/L Procalcitonin (<0.5) ng/mL Urine Color Yellow Urine Appearance Clear Urine pH 5.5 (4.5-8.0) Ur Specific [place] 1.010 (1.000-1.035) Urine Protein 1+ H (Negative) Urine Glucose (UA) Trace H (Negative) g/dL Urine Ketones Trace H (NEGATIVE) Urine Occult Blood 2+ H (Negative) Urine Nitrate Positive H (Negative) Urine Bilirubin Negative (NEGATIVE) Urine Urobilinogen 0.2 (0.2) E.U./dL Ur Leukocyte Esterase Trace H (NEGATIVE) Urine RBC 1-5/hpf (0-5/HPF) Urine WBC 5-10/hpf H (0-5/HPF) Ur Squamous Epith Cells 1-5 /hpf (0-5/HPF) Amorphous Sediment 2+ Urine Bacteria Moderate (10-30) H (None) Ur Culture Indicated? Specimen cultured SARS-CoV-2 (PCR) (Negative) Influenza A (RT-PCR) (NEGATIVE) Influenza B (RT-PCR) (NEGATIVE) RSV (PCR) (Negative) 05/13/22 05/14/22 Range/Units 04:14 09:09 WBC (4.5-11.0) X10^3/uL RBC (4.0-5.2) X10^6/uL Hgb (12.0-16.0) g/dL Hct (36-46) % MCV (80-100) fL MCH (26-34) PG MCHC (30-36) % RDW (11.6-14.8) % Plt Count (150-400) X10^3/uL Neut % (Auto) (50-75) % Lymph % (Auto) (25-40) % [place] % (Auto) (3-14) % Eos % (Auto) (2-4) % Baso % (Auto) (0-2) % Neut # (Auto) (5942-1523) /uL Lymph # (Auto) (1822-3050) /uL [place] # (Auto) (0-900) /uL Eos # (Auto) (0-450) /uL Baso # (Auto) (0-100) /uL PT (10.1-12.7) SECONDS INR (0.9-1.3) APTT (26-36) SECONDS Sodium 139 (137-145) mmol/L Potassium 3.6 (3.4-5.1) mmol/L Chloride 103 (98-107) mmol/L Carbon Dioxide 29 (22-32) mmol/L BUN 18 H (7-17) mg/dL Creatinine 0.67 (0.52-1.04) mg/dL Estimated GFR > 60 (>60) mL/min BUN/Creatinine Ratio 26.9 H (6-22) Glucose 105 (80-110) mg/dL Lactate (0.7-2.1) mmol/L Calcium 8.5 (8.4-10.2) mg/dL Total Bilirubin 0.6 (0.2-1.3) mg/dL AST 19 (14-36) IU/L ALT 17 (<35) IU/L Alkaline Phosphatase 82 (38-126) U/L Total Creatine Kinase (30-135) U/L CK-MB (CK-2) CK-MB (CK-2) Rel Index Troponin I (0.01-0.034) ng/mL NT-Pro-B Natriuret Pep (<450) pg/mL Total Protein 7.2 (6.3-8.2) g/dL Albumin 4.0 (3.5-5.0) g/dL Globulin 3.2 (1.7-4.1) g/dL Albumin/Globulin Ratio 1.3 (1.0-2.8) Lipase (23-300) U/L Procalcitonin (<0.5) ng/mL Urine Color Urine Appearance Urine pH (4.5-8.0) Ur Specific [place] (1.000-1.035) Urine Protein (Negative) Urine Glucose (UA) (Negative) g/dL Urine Ketones (NEGATIVE) Urine Occult Blood (Negative) Urine Nitrate (Negative) Urine Bilirubin (NEGATIVE) Urine Urobilinogen (0.2) E.U./dL Ur Leukocyte Esterase (NEGATIVE) Urine RBC (0-5/HPF) Urine WBC (0-5/HPF) Ur Squamous Epith Cells (0-5/HPF) Amorphous Sediment Urine Bacteria (None) Ur Culture Indicated? SARS-CoV-2 (PCR) Negative (Negative) Influenza A (RT-PCR) (NEGATIVE) Influenza B (RT-PCR) (NEGATIVE) RSV (PCR) (Negative) Imaging Data Chest x-ray: Radiologist's Impression: [address] [address] XRay Report Signed Patient: Bri Martins MR#: [id number] : 1940 Acct:[id number] Age/Sex: 82 / F Date of Service: 05/12/22 Loc: ED Accession Number: [id number] ?? Procedure: XR chest 1V Ordering Provider: Drea Meza D.O. PROCEDURE:? XR CHEST 1V ? INDICATIONS:? suspected sepsis ? TECHNIQUE:? One view of the chest was acquired.? ? COMPARISON:? [facility], CR, XR CHEST 1 VIEW, 03/08/2021, 21:12.? [facility], , CHEST 2 VIEW, 09/03/2006, 13:00. ? FINDINGS:? ? Surgical changes and devices:? Right axillary clips are seen. Cholecystectomy clips are seen.? ? Lungs and pleura:? On this semiupright portable chest examination, no large pneumothorax or large pleural effusions are seen.? No focal infiltrates are seen.? Low lung volumes are noted. This causes a crowded appearance to the lung markings and limits evaluation.? ? Mediastinum:? The cardiac contours are within normal limits. The aorta demonstrates calcification and tortuosity. ? Bones and chest wall:? Age-appropriate bony degenerative changes are seen.? No suspicious bony lesions.? Overlying soft tissues appear unremarkable.? IMPRESSION:? Limited study with low lung volumes, without focal infiltrates. ? ? Dictated by: Kapil Bansal M.D. on 05/12/2022 at 13:57 ? ? Approved by: Kapil Bansal M.D. on 05/12/2022 at 13:58? ECG Data Attestation: I personally reviewed and interpreted this ECG as follows: Interpretation: Sinus rhythm Ventricular rate 81 Normal axis Normal QRS Normal QTC No ST T wave changes MDM Narrative Medical decision making narrative: Patient's vital signs are unremarkable. Chest x-ray is unremarkable. She is no specific complaints upon my evaluation. She knows that she is in the hospital and knows what city she is in but is little confused about what year it is. She does know her birthday. She received Rocephin prior to arrival. She received another g of Rocephin upon arrival here in the ER. No fevers. Patient does not have specific reason for admission to the hospital currently however also does not have the ability to be discharged home. Patient was observed in the emergency department overnight. Elen's remained stable. Social work consult placed. Patient has tolerated oral intake. Care turned over to Dr. Meza to follow-up with social work and disposition. Patient signed out to me by Dr. Oliver seen and evaluated patient myself. According to records patient was seen by PCP yesterday she has had a cough low-grade fever malaise decreased appetite and weakness and inability to self catheterize. Her reports decreased ability to do ADLs. Workup yesterday revealed that patient probably had a UTI but is not septic. She did receive dose of Rocephin. She has normal leukocytosis she is afebrile not have hypotensive or hypoxic. At this time felt not to meet admission criteria. I have attempted to call the son whose number is disconnected and I left a voicemail for the . Per PCP no yesterday there is concern for probable long-term placement and residential facility. Dr Oliver overnight 05/13-05/14: Assumed care of patient. Reviewed her events over the day. She continues to be stable. Has received 2 days of IV Rocephin. Has Rocephin ordered for tomorrow morning. Care turned over to Dr. Menjivar to continue with social work evaluation and disposition. <Drea Susana, - Last Filed: 05/18/22 07:11> Lab Data Labs: Lab Results 05/12/22 05/12/22 05/12/22 Range/Units 14:25 14:25 14:25 WBC 4.1 L (4.5-11.0) X10^3/uL RBC 4.26 (4.0-5.2) X10^6/uL Hgb 12.8 (12.0-16.0) g/dL Hct 38.7 (36-46) % MCV 90.8 (80-100) fL MCH 30.0 (26-34) PG MCHC 33.0 (30-36) % RDW 15.0 H (11.6-14.8) % Plt Count 154 (150-400) X10^3/uL Neut % (Auto) 67.2 (50-75) % Lymph % (Auto) 23.3 L (25-40) % [place] % (Auto) 8.9 (3-14) % Eos % (Auto) 0.2 L (2-4) % Baso % (Auto) 0.4 (0-2) % Neut # (Auto) 2800 (7196-3051) /uL Lymph # (Auto) 1000 L (1520-8207) /uL [place] # (Auto) 400 (0-900) /uL Eos # (Auto) 0 (0-450) /uL Baso # (Auto) 0 (0-100) /uL PT 12.6 (10.1-12.7) SECONDS INR 1.1 (0.9-1.3) APTT 27 (26-36) SECONDS Sodium 138 (137-145) mmol/L Potassium 3.6 (3.4-5.1) mmol/L Chloride 99 (98-107) mmol/L Carbon Dioxide 30 (22-32) mmol/L BUN 17 (7-17) mg/dL Creatinine 0.68 (0.52-1.04) mg/dL Estimated GFR > 60 (>60) mL/min BUN/Creatinine Ratio 25.0 H (6-22) Glucose 157 H (80-110) mg/dL Lactate (0.7-2.1) mmol/L Calcium 9.2 (8.4-10.2) mg/dL Total Bilirubin 0.5 (0.2-1.3) mg/dL AST 21 (14-36) IU/L ALT 19 (<35) IU/L Alkaline Phosphatase 85 (38-126) U/L Total Creatine Kinase (30-135) U/L CK-MB (CK-2) CK-MB (CK-2) Rel Index Troponin I (0.01-0.034) ng/mL NT-Pro-B Natriuret Pep (<450) pg/mL Total Protein 7.9 (6.3-8.2) g/dL Albumin 4.2 (3.5-5.0) g/dL Globulin 3.7 (1.7-4.1) g/dL Albumin/Globulin Ratio 1.1 (1.0-2.8) Lipase 63 (23-300) U/L Procalcitonin 0.07 (<0.5) ng/mL Urine Color Urine Appearance Urine pH (4.5-8.0) Ur Specific [place] (1.000-1.035) Urine Protein (Negative) Urine Glucose (UA) (Negative) g/dL Urine Ketones (NEGATIVE) Urine Occult Blood (Negative) Urine Nitrate (Negative) Urine Bilirubin (NEGATIVE) Urine Urobilinogen (0.2) E.U./dL Ur Leukocyte Esterase (NEGATIVE) Urine RBC (0-5/HPF) Urine WBC (0-5/HPF) Ur Squamous Epith Cells (0-5/HPF) Amorphous Sediment Urine Bacteria (None) Ur Culture Indicated? SARS-CoV-2 (PCR) (Negative) Influenza A (RT-PCR) (NEGATIVE) Influenza B (RT-PCR) (NEGATIVE) RSV (PCR) (Negative) 05/12/22 05/12/22 05/12/22 Range/Units 14:25 14:25 14:30 WBC (4.5-11.0) X10^3/uL RBC (4.0-5.2) X10^6/uL Hgb (12.0-16.0) g/dL Hct (36-46) % MCV (80-100) fL MCH (26-34) PG MCHC (30-36) % RDW (11.6-14.8) % Plt Count (150-400) X10^3/uL Neut % (Auto) (50-75) % Lymph % (Auto) (25-40) % [place] % (Auto) (3-14) % Eos % (Auto) (2-4) % Baso % (Auto) (0-2) % Neut # (Auto) (9866-2340) /uL Lymph # (Auto) (0352-3132) /uL [place] # (Auto) (0-900) /uL Eos # (Auto) (0-450) /uL Baso # (Auto) (0-100) /uL PT (10.1-12.7) SECONDS INR (0.9-1.3) APTT (26-36) SECONDS Sodium (137-145) mmol/L Potassium (3.4-5.1) mmol/L Chloride (98-107) mmol/L Carbon Dioxide (22-32) mmol/L BUN (7-17) mg/dL Creatinine (0.52-1.04) mg/dL Estimated GFR (>60) mL/min BUN/Creatinine Ratio (6-22) Glucose (80-110) mg/dL Lactate 2.3 H (0.7-2.1) mmol/L Calcium (8.4-10.2) mg/dL Total Bilirubin (0.2-1.3) mg/dL AST (14-36) IU/L ALT (<35) IU/L Alkaline Phosphatase (38-126) U/L Total Creatine Kinase 73 (30-135) U/L CK-MB (CK-2) TNP CK-MB (CK-2) Rel Index TNP Troponin I < 0.012 (0.01-0.034) ng/mL NT-Pro-B Natriuret Pep 408 (<450) pg/mL Total Protein (6.3-8.2) g/dL Albumin (3.5-5.0) g/dL Globulin (1.7-4.1) g/dL Albumin/Globulin Ratio (1.0-2.8) Lipase (23-300) U/L Procalcitonin (<0.5) ng/mL Urine Color Urine Appearance Urine pH (4.5-8.0) Ur Specific [place] (1.000-1.035) Urine Protein (Negative) Urine Glucose (UA) (Negative) g/dL Urine Ketones (NEGATIVE) Urine Occult Blood (Negative) Urine Nitrate (Negative) Urine Bilirubin (NEGATIVE) Urine Urobilinogen (0.2) E.U./dL Ur Leukocyte Esterase (NEGATIVE) Urine RBC (0-5/HPF) Urine WBC (0-5/HPF) Ur Squamous Epith Cells (0-5/HPF) Amorphous Sediment Urine Bacteria (None) Ur Culture Indicated? SARS-CoV-2 (PCR) Negative (Negative) Influenza A (RT-PCR) Flu a negative (NEGATIVE) Influenza B (RT-PCR) Flu b negative (NEGATIVE) RSV (PCR) Negative (Negative) 05/12/22 05/12/22 05/13/22 Range/Units 15:25 17:05 04:14 WBC 4.7 (4.5-11.0) X10^3/uL RBC 4.12 (4.0-5.2) X10^6/uL Hgb 12.5 (12.0-16.0) g/dL Hct 37.2 (36-46) % MCV 90.3 (80-100) fL MCH 30.2 (26-34) PG MCHC 33.5 (30-36) % RDW 14.9 H (11.6-14.8) % Plt Count 147 L (150-400) X10^3/uL Neut % (Auto) 60.7 (50-75) % Lymph % (Auto) 26.8 (25-40) % [place] % (Auto) 11.3 (3-14) % Eos % (Auto) 0.7 L (2-4) % Baso % (Auto) 0.5 (0-2) % Neut # (Auto) 2900 (4278-6432) /uL Lymph # (Auto) 1300 (8092-2287) /uL [place] # (Auto) 500 (0-900) /uL Eos # (Auto) 0 (0-450) /uL Baso # (Auto) 0 (0-100) /uL PT (10.1-12.7) SECONDS INR (0.9-1.3) APTT (26-36) SECONDS Sodium (137-145) mmol/L Potassium (3.4-5.1) mmol/L Chloride (98-107) mmol/L Carbon Dioxide (22-32) mmol/L BUN (7-17) mg/dL Creatinine (0.52-1.04) mg/dL Estimated GFR (>60) mL/min BUN/Creatinine Ratio (6-22) Glucose (80-110) mg/dL Lactate 1.4 (0.7-2.1) mmol/L Calcium (8.4-10.2) mg/dL Total Bilirubin (0.2-1.3) mg/dL AST (14-36) IU/L ALT (<35) IU/L Alkaline Phosphatase (38-126) U/L Total Creatine Kinase (30-135) U/L CK-MB (CK-2) CK-MB (CK-2) Rel Index Troponin I (0.01-0.034) ng/mL NT-Pro-B Natriuret Pep (<450) pg/mL Total Protein (6.3-8.2) g/dL Albumin (3.5-5.0) g/dL Globulin (1.7-4.1) g/dL Albumin/Globulin Ratio (1.0-2.8) Lipase (23-300) U/L Procalcitonin (<0.5) ng/mL Urine Color Yellow Urine Appearance Clear Urine pH 5.5 (4.5-8.0) Ur Specific [place] 1.010 (1.000-1.035) Urine Protein 1+ H (Negative) Urine Glucose (UA) Trace H (Negative) g/dL Urine Ketones Trace H (NEGATIVE) Urine Occult Blood 2+ H (Negative) Urine Nitrate Positive H (Negative) Urine Bilirubin Negative (NEGATIVE) Urine Urobilinogen 0.2 (0.2) E.U./dL Ur Leukocyte Esterase Trace H (NEGATIVE) Urine RBC 1-5/hpf (0-5/HPF) Urine WBC 5-10/hpf H (0-5/HPF) Ur Squamous Epith Cells 1-5 /hpf (0-5/HPF) Amorphous Sediment 2+ Urine Bacteria Moderate (10-30) H (None) Ur Culture Indicated? Specimen cultured SARS-CoV-2 (PCR) (Negative) Influenza A (RT-PCR) (NEGATIVE) Influenza B (RT-PCR) (NEGATIVE) RSV (PCR) (Negative) 05/13/22 05/14/22 Range/Units 04:14 09:09 WBC (4.5-11.0) X10^3/uL RBC (4.0-5.2) X10^6/uL Hgb (12.0-16.0) g/dL Hct (36-46) % MCV (80-100) fL MCH (26-34) PG MCHC (30-36) % RDW (11.6-14.8) % Plt Count (150-400) X10^3/uL Neut % (Auto) (50-75) % Lymph % (Auto) (25-40) % [place] % (Auto) (3-14) % Eos % (Auto) (2-4) % Baso % (Auto) (0-2) % Neut # (Auto) (3665-5216) /uL Lymph # (Auto) (1041-2319) /uL [place] # (Auto) (0-900) /uL Eos # (Auto) (0-450) /uL Baso # (Auto) (0-100) /uL PT (10.1-12.7) SECONDS INR (0.9-1.3) APTT (26-36) SECONDS Sodium 139 (137-145) mmol/L Potassium 3.6 (3.4-5.1) mmol/L Chloride 103 (98-107) mmol/L Carbon Dioxide 29 (22-32) mmol/L BUN 18 H (7-17) mg/dL Creatinine 0.67 (0.52-1.04) mg/dL Estimated GFR > 60 (>60) mL/min BUN/Creatinine Ratio 26.9 H (6-22) Glucose 105 (80-110) mg/dL Lactate (0.7-2.1) mmol/L Calcium 8.5 (8.4-10.2) mg/dL Total Bilirubin 0.6 (0.2-1.3) mg/dL AST 19 (14-36) IU/L ALT 17 (<35) IU/L Alkaline Phosphatase 82 (38-126) U/L Total Creatine Kinase (30-135) U/L CK-MB (CK-2) CK-MB (CK-2) Rel Index Troponin I (0.01-0.034) ng/mL NT-Pro-B Natriuret Pep (<450) pg/mL Total Protein 7.2 (6.3-8.2) g/dL Albumin 4.0 (3.5-5.0) g/dL Globulin 3.2 (1.7-4.1) g/dL Albumin/Globulin Ratio 1.3 (1.0-2.8) Lipase (23-300) U/L Procalcitonin (<0.5) ng/mL Urine Color Urine Appearance Urine pH (4.5-8.0) Ur Specific [place] (1.000-1.035) Urine Protein (Negative) Urine Glucose (UA) (Negative) g/dL Urine Ketones (NEGATIVE) Urine Occult Blood (Negative) Urine Nitrate (Negative) Urine Bilirubin (NEGATIVE) Urine Urobilinogen (0.2) E.U./dL Ur Leukocyte Esterase (NEGATIVE) Urine RBC (0-5/HPF) Urine WBC (0-5/HPF) Ur Squamous Epith Cells (0-5/HPF) Amorphous Sediment Urine Bacteria (None) Ur Culture Indicated? SARS-CoV-2 (PCR) Negative (Negative) Influenza A (RT-PCR) (NEGATIVE) Influenza B (RT-PCR) (NEGATIVE) RSV (PCR) (Negative) MDM Narrative Medical decision making narrative: Patient's vital signs are unremarkable. Chest x-ray is unremarkable. She is no specific complaints upon my evaluation. She knows that she is in the hospital and knows what city she is in but is little confused about what year it is. She does know her birthday. She received Rocephin prior to arrival. She received another g of Rocephin upon arrival here in the ER. No fevers. Patient does not have specific reason for admission to the hospital currently however also does not have the ability to be discharged home. Patient was observed in the emergency department overnight. Elen's remained stable. Social work consult placed. Patient has tolerated oral intake. Care turned over to Dr. Meza to follow-up with social work and disposition. Dr. Meza- Patient signed out to me by Dr. Oliver seen and evaluated patient myself. According to records patient was seen by PCP yesterday she has had a cough low-grade fever malaise decreased appetite and weakness and inability to self catheterize. Her reports decreased ability to do ADLs. Workup yesterday revealed that patient probably had a UTI but is not septic. She did receive dose of Rocephin. She has normal leukocytosis she is afebrile not have hypotensive or hypoxic. At this time felt not to meet admission criteria. I have attempted to call the son whose number is disconnected and I left a voicemail for the . Per PCP no yesterday there is concern for probable long-term placement and residential facility. Dr Oliver overnight 05/13-05/14: Assumed care of patient. Reviewed her events over the day. She continues to be stable. Has received 2 days of IV Rocephin. Has Rocephin ordered for tomorrow morning. Care turned over to Dr. Menjivar to continue with social work evaluation and disposition. Dr. Menjivar 05/14/22: Otto, patient signed out to myself. Reviewed her stay over the past 2 days she is received IV Rocephin. Patient note acts as an ammendeded discharge summary plan no further discharge summary to follow. Patient to continue with Macrobid based on sensitivities her urine. Patient is to continue to take her regular medications as prescribed and will require PT/OT. Social work has kindly found placement at [facility] in [place]. <Belem Menjivar, DO - Last Filed: 05/15/22 07:25> Lab Data Labs: Lab Results 05/12/22 05/12/22 05/12/22 Range/Units 14:25 14:25 14:25 WBC 4.1 L (4.5-11.0) X10^3/uL RBC 4.26 (4.0-5.2) X10^6/uL Hgb 12.8 (12.0-16.0) g/dL Hct 38.7 (36-46) % MCV 90.8 (80-100) fL MCH 30.0 (26-34) PG MCHC 33.0 (30-36) % RDW 15.0 H (11.6-14.8) % Plt Count 154 (150-400) X10^3/uL Neut % (Auto) 67.2 (50-75) % Lymph % (Auto) 23.3 L (25-40) % [place] % (Auto) 8.9 (3-14) % Eos % (Auto) 0.2 L (2-4) % Baso % (Auto) 0.4 (0-2) % Neut # (Auto) 2800 (5408-8050) /uL Lymph # (Auto) 1000 L (6723-6039) /uL [place] # (Auto) 400 (0-900) /uL Eos # (Auto) 0 (0-450) /uL Baso # (Auto) 0 (0-100) /uL PT 12.6 (10.1-12.7) SECONDS INR 1.1 (0.9-1.3) APTT 27 (26-36) SECONDS Sodium 138 (137-145) mmol/L Potassium 3.6 (3.4-5.1) mmol/L Chloride 99 (98-107) mmol/L Carbon Dioxide 30 (22-32) mmol/L BUN 17 (7-17) mg/dL Creatinine 0.68 (0.52-1.04) mg/dL Estimated GFR > 60 (>60) mL/min BUN/Creatinine Ratio 25.0 H (6-22) Glucose 157 H (80-110) mg/dL Lactate (0.7-2.1) mmol/L Calcium 9.2 (8.4-10.2) mg/dL Total Bilirubin 0.5 (0.2-1.3) mg/dL AST 21 (14-36) IU/L ALT 19 (<35) IU/L Alkaline Phosphatase 85 (38-126) U/L Total Creatine Kinase (30-135) U/L CK-MB (CK-2) CK-MB (CK-2) Rel Index Troponin I (0.01-0.034) ng/mL NT-Pro-B Natriuret Pep (<450) pg/mL Total Protein 7.9 (6.3-8.2) g/dL Albumin 4.2 (3.5-5.0) g/dL Globulin 3.7 (1.7-4.1) g/dL Albumin/Globulin Ratio 1.1 (1.0-2.8) Lipase 63 (23-300) U/L Procalcitonin 0.07 (<0.5) ng/mL Urine Color Urine Appearance Urine pH (4.5-8.0) Ur Specific [place] (1.000-1.035) Urine Protein (Negative) Urine Glucose (UA) (Negative) g/dL Urine Ketones (NEGATIVE) Urine Occult Blood (Negative) Urine Nitrate (Negative) Urine Bilirubin (NEGATIVE) Urine Urobilinogen (0.2) E.U./dL Ur Leukocyte Esterase (NEGATIVE) Urine RBC (0-5/HPF) Urine WBC (0-5/HPF) Ur Squamous Epith Cells (0-5/HPF) Amorphous Sediment Urine Bacteria (None) Ur Culture Indicated? SARS-CoV-2 (PCR) (Negative) Influenza A (RT-PCR) (NEGATIVE) Influenza B (RT-PCR) (NEGATIVE) RSV (PCR) (Negative) 05/12/22 05/12/22 05/12/22 Range/Units 14:25 14:25 14:30 WBC (4.5-11.0) X10^3/uL RBC (4.0-5.2) X10^6/uL Hgb (12.0-16.0) g/dL Hct (36-46) % MCV (80-100) fL MCH (26-34) PG MCHC (30-36) % RDW (11.6-14.8) % Plt Count (150-400) X10^3/uL Neut % (Auto) (50-75) % Lymph % (Auto) (25-40) % [place] % (Auto) (3-14) % Eos % (Auto) (2-4) % Baso % (Auto) (0-2) % Neut # (Auto) (9586-8275) /uL Lymph # (Auto) (5998-5935) /uL [place] # (Auto) (0-900) /uL Eos # (Auto) (0-450) /uL Baso # (Auto) (0-100) /uL PT (10.1-12.7) SECONDS INR (0.9-1.3) APTT (26-36) SECONDS Sodium (137-145) mmol/L Potassium (3.4-5.1) mmol/L Chloride (98-107) mmol/L Carbon Dioxide (22-32) mmol/L BUN (7-17) mg/dL Creatinine (0.52-1.04) mg/dL Estimated GFR (>60) mL/min BUN/Creatinine Ratio (6-22) Glucose (80-110) mg/dL Lactate 2.3 H (0.7-2.1) mmol/L Calcium (8.4-10.2) mg/dL Total Bilirubin (0.2-1.3) mg/dL AST (14-36) IU/L ALT (<35) IU/L Alkaline Phosphatase (38-126) U/L Total Creatine Kinase 73 (30-135) U/L CK-MB (CK-2) TNP CK-MB (CK-2) Rel Index TNP Troponin I < 0.012 (0.01-0.034) ng/mL NT-Pro-B Natriuret Pep 408 (<450) pg/mL Total Protein (6.3-8.2) g/dL Albumin (3.5-5.0) g/dL Globulin (1.7-4.1) g/dL Albumin/Globulin Ratio (1.0-2.8) Lipase (23-300) U/L Procalcitonin (<0.5) ng/mL Urine Color Urine Appearance Urine pH (4.5-8.0) Ur Specific [place] (1.000-1.035) Urine Protein (Negative) Urine Glucose (UA) (Negative) g/dL Urine Ketones (NEGATIVE) Urine Occult Blood (Negative) Urine Nitrate (Negative) Urine Bilirubin (NEGATIVE) Urine Urobilinogen (0.2) E.U./dL Ur Leukocyte Esterase (NEGATIVE) Urine RBC (0-5/HPF) Urine WBC (0-5/HPF) Ur Squamous Epith Cells (0-5/HPF) Amorphous Sediment Urine Bacteria (None) Ur Culture Indicated? SARS-CoV-2 (PCR) Negative (Negative) Influenza A (RT-PCR) Flu a negative (NEGATIVE) Influenza B (RT-PCR) Flu b negative (NEGATIVE) RSV (PCR) Negative (Negative) 05/12/22 05/12/22 05/13/22 Range/Units 15:25 17:05 04:14 WBC 4.7 (4.5-11.0) X10^3/uL RBC 4.12 (4.0-5.2) X10^6/uL Hgb 12.5 (12.0-16.0) g/dL Hct 37.2 (36-46) % MCV 90.3 (80-100) fL MCH 30.2 (26-34) PG MCHC 33.5 (30-36) % RDW 14.9 H (11.6-14.8) % Plt Count 147 L (150-400) X10^3/uL Neut % (Auto) 60.7 (50-75) % Lymph % (Auto) 26.8 (25-40) % [place] % (Auto) 11.3 (3-14) % Eos % (Auto) 0.7 L (2-4) % Baso % (Auto) 0.5 (0-2) % Neut # (Auto) 2900 (0663-6642) /uL Lymph # (Auto) 1300 (6396-0048) /uL [place] # (Auto) 500 (0-900) /uL Eos # (Auto) 0 (0-450) /uL Baso # (Auto) 0 (0-100) /uL PT (10.1-12.7) SECONDS INR (0.9-1.3) APTT (26-36) SECONDS Sodium (137-145) mmol/L Potassium (3.4-5.1) mmol/L Chloride (98-107) mmol/L Carbon Dioxide (22-32) mmol/L BUN (7-17) mg/dL Creatinine (0.52-1.04) mg/dL Estimated GFR (>60) mL/min BUN/Creatinine Ratio (6-22) Glucose (80-110) mg/dL Lactate 1.4 (0.7-2.1) mmol/L Calcium (8.4-10.2) mg/dL Total Bilirubin (0.2-1.3) mg/dL AST (14-36) IU/L ALT (<35) IU/L Alkaline Phosphatase (38-126) U/L Total Creatine Kinase (30-135) U/L CK-MB (CK-2) CK-MB (CK-2) Rel Index Troponin I (0.01-0.034) ng/mL NT-Pro-B Natriuret Pep (<450) pg/mL Total Protein (6.3-8.2) g/dL Albumin (3.5-5.0) g/dL Globulin (1.7-4.1) g/dL Albumin/Globulin Ratio (1.0-2.8) Lipase (23-300) U/L Procalcitonin (<0.5) ng/mL Urine Color Yellow Urine Appearance Clear Urine pH 5.5 (4.5-8.0) Ur Specific [place] 1.010 (1.000-1.035) Urine Protein 1+ H (Negative) Urine Glucose (UA) Trace H (Negative) g/dL Urine Ketones Trace H (NEGATIVE) Urine Occult Blood 2+ H (Negative) Urine Nitrate Positive H (Negative) Urine Bilirubin Negative (NEGATIVE) Urine Urobilinogen 0.2 (0.2) E.U./dL Ur Leukocyte Esterase Trace H (NEGATIVE) Urine RBC 1-5/hpf (0-5/HPF) Urine WBC 5-10/hpf H (0-5/HPF) Ur Squamous Epith Cells 1-5 /hpf (0-5/HPF) Amorphous Sediment 2+ Urine Bacteria Moderate (10-30) H (None) Ur Culture Indicated? Specimen cultured SARS-CoV-2 (PCR) (Negative) Influenza A (RT-PCR) (NEGATIVE) Influenza B (RT-PCR) (NEGATIVE) RSV (PCR) (Negative) 05/13/22 05/14/22 Range/Units 04:14 09:09 WBC (4.5-11.0) X10^3/uL RBC (4.0-5.2) X10^6/uL Hgb (12.0-16.0) g/dL Hct (36-46) % MCV (80-100) fL MCH (26-34) PG MCHC (30-36) % RDW (11.6-14.8) % Plt Count (150-400) X10^3/uL Neut % (Auto) (50-75) % Lymph % (Auto) (25-40) % [place] % (Auto) (3-14) % Eos % (Auto) (2-4) % Baso % (Auto) (0-2) % Neut # (Auto) (1777-9334) /uL Lymph # (Auto) (5546-0478) /uL [place] # (Auto) (0-900) /uL Eos # (Auto) (0-450) /uL Baso # (Auto) (0-100) /uL PT (10.1-12.7) SECONDS INR (0.9-1.3) APTT (26-36) SECONDS Sodium 139 (137-145) mmol/L Potassium 3.6 (3.4-5.1) mmol/L Chloride 103 (98-107) mmol/L Carbon Dioxide 29 (22-32) mmol/L BUN 18 H (7-17) mg/dL Creatinine 0.67 (0.52-1.04) mg/dL Estimated GFR > 60 (>60) mL/min BUN/Creatinine Ratio 26.9 H (6-22) Glucose 105 (80-110) mg/dL Lactate (0.7-2.1) mmol/L Calcium 8.5 (8.4-10.2) mg/dL Total Bilirubin 0.6 (0.2-1.3) mg/dL AST 19 (14-36) IU/L ALT 17 (<35) IU/L Alkaline Phosphatase 82 (38-126) U/L Total Creatine Kinase (30-135) U/L CK-MB (CK-2) CK-MB (CK-2) Rel Index Troponin I (0.01-0.034) ng/mL NT-Pro-B Natriuret Pep (<450) pg/mL Total Protein 7.2 (6.3-8.2) g/dL Albumin 4.0 (3.5-5.0) g/dL Globulin 3.2 (1.7-4.1) g/dL Albumin/Globulin Ratio 1.3 (1.0-2.8) Lipase (23-300) U/L Procalcitonin (<0.5) ng/mL Urine Color Urine Appearance Urine pH (4.5-8.0) Ur Specific [place] (1.000-1.035) Urine Protein (Negative) Urine Glucose (UA) (Negative) g/dL Urine Ketones (NEGATIVE) Urine Occult Blood (Negative) Urine Nitrate (Negative) Urine Bilirubin (NEGATIVE) Urine Urobilinogen (0.2) E.U./dL Ur Leukocyte Esterase (NEGATIVE) Urine RBC (0-5/HPF) Urine WBC (0-5/HPF) Ur Squamous Epith Cells (0-5/HPF) Amorphous Sediment Urine Bacteria (None) Ur Culture Indicated? SARS-CoV-2 (PCR) Negative (Negative) Influenza A (RT-PCR) (NEGATIVE) Influenza B (RT-PCR) (NEGATIVE) RSV (PCR) (Negative) [facility] Narrative Medical decision making narrative: Patient's vital signs are unremarkable. Chest x-ray is unremarkable. She is no specific complaints upon my evaluation. She knows that she is in the hospital and knows what city she is in but is little confused about what year it is. She does know her birthday. She received Rocephin prior to arrival. She received another g of Rocephin upon arrival here in the ER. No fevers. Patient does not have specific reason for admission to the hospital currently however also does not have the ability to be discharged home. Patient was observed in the emergency department overnight. Elen's remained stable. Social work consult placed. Patient has tolerated oral intake. Care turned over to Dr. Meza to follow-up with social work and disposition. Patient signed out to me by Dr. Oliver seen and evaluated patient myself. According to records patient was seen by PCP yesterday she has had a cough low-grade fever malaise decreased appetite and weakness and inability to self catheterize. Her reports decreased ability to do ADLs. Workup yesterday revealed that patient probably had a UTI but is not septic. She did receive dose of Rocephin. She has normal leukocytosis she is afebrile not have hypotensive or hypoxic. At this time felt not to meet admission criteria. I have attempted to call the son whose number is disconnected and I left a voicemail for the . Per PCP no yesterday there is concern for probable long-term placement and residential facility. Dr Oliver overnight 05/13-05/14: Assumed care of patient. Reviewed her events over the day. She continues to be stable. Has received 2 days of IV Rocephin. Has Rocephin ordered for tomorrow morning. Care turned over to Dr. Menjivar to continue with social work evaluation and disposition. Dr. Menjivar 05/14/22: Otto, patient signed out to myself. Reviewed her stay over the past 2 days she is received IV Rocephin. Patient note acts as an ammendeded discharge summary plan no further discharge summary to follow. Patient to continue with Macrobid based on sensitivities her urine. Patient is to continue to take her regular medications as prescribed and will require PT/OT. Social work has kindly found placement at [facility] in [place]. Discharge Plan Departure Patient Disposition: [facility] Clinical Impression: Acute UTI Activity Restrictions/Additional Instructions: You been diagnosed with a UTI during your stay here. You have been receiving IV Rocephin in the emergency department during her stay over the past 2 days. Urine culture shows sensitivity to Macrobid, and is printed off and included in the packet today. Please start your Macrobid tomorrow on 05/15/2022 and continue through 05/22/2022. You may continue all your other home medications as prescribed Please return for fevers, new or worsening confusion, chest pain, shortness of breath, persistent vomiting, difficulty with urination, or other new or concerning changes. Prescriptions: New nitrofurantoin monohyd/m-cryst [Macrobid] 100 mg capsule 100 mg PO Q12H 8 Days Qty: 16 0RF Rx Instructions: must administer with a meal/food No Action aspirin 81 MG tablet,delayed release (DR/EC) 81 mg PO QDAY Qty: 0 (DME) Booster-Total Dry Pads See Rx Instructions .Route .MEDSUPPLY Qty: 1 0RF Rx Instructions: As directed. [facility] #[id number] donepezil 10 mg tablet 10 mg PO DAILY Qty: 90 3RF allopurinol 100 mg tablet 100 mg PO DAILY Qty: 14 0RF oxyquinoline-sod.lauryl sulfat 0.025-0.01 % gel 1 ea vaginal .weekly Qty: 113.4 3RF Rx Instructions: Apply 1g vaginally once weekly. docusate sodium [Colace] 100 mg capsule 100 mg PO DAILY Qty: 90 0RF gabapentin 100 mg capsule 100 mg PO DAILY Myrbetriq 50 mg tablet extended release 24 hr 50 mg PO DAILY calcium carbonate 500 mg calcium (1,250 mg) Capsule 500 mg PO DAILY cholecalciferol (vitamin D3) 10 mcg (400 unit) Capsule 10 mcg PO DAILY Fish Oil Capsule 1 cap PO DAILY memantine 10 mg tablet 10 mg PO BID azithromycin 250 mg tablet See Rx Instructions PO .COMPLEX Qty: 6 0RF Rx Instructions: For 250 mg dose pack: take 500 mg today (day 1), then 250 mg for 4 days (days 2-5) PO. Started 05/12 trospium 20 mg tablet 20 mg PO BIDAC Qty: 60 0RF SNF Discharge Plan Transfer to: [facility] Transportation: Ambulance Provider Discharge comment: Patient to complete antibiotics on 05/22/22 for 10 days total. To start oral antibiotic 05/15/22, had IV Rocephin on 05/14/22. I certify the postop hospital residential care is medically necessary on a continuing basis for any conditions for which he/ she received care during this hospitalization.: Yes The receiving facility has agreed to accept transfer and provide medical treatment.: Yes Discharge Health Status Multidrug resistant organism: Other MDRO Verified by culture: Yes Date verified: 05/12/22 Diet/Activity/Treatments Diet: Regular Food texture: Regular Activity: As directed by PT Catheter comment: self catheterize twice daily, Q 12 hours. Skin/Wound/Dressing Care Report to your healthcare provider any signs of infection, such as: chills, fever, night sweats and increased pain Special Rehabilitation Services Reason for rehabilitation: Recovery r/t decondition Rehab type: Physical therapy and Occupational therapy
--- NOTE | 2022-05-12 18:15 | PC.NURSE ---
Dr. Oliver at bedside - pt requesting to eat
--- NOTE | 2022-05-12 18:45 | PC.NURSE ---
No changes in pt status at this time
--- NOTE | 2022-05-12 19:15 | PC.NURSE ---
Report to , RN - care relinquished at this time
--- NOTE | 2022-05-12 20:39 | PC.NURSE ---
Addendum entered by Gary Tavares R.N. 05/12/22 20:40: Ceftriaxone Original Note: DC'd but not documented by previous RN.
[2022-05-12] MEDS: MEMANTINE HCL 5 MG TABLET 10 MG PO (22:15)
[2022-05-12] MEDS: DONEPEZIL 5 MG TABLET 10 MG PO (22:16)
[2022-05-12] MEDS: GABAPENTIN 100 MG CAPSULE PO (22:16)
[2022-05-13] VITALS (53 sets, daily range): BP systolic 109–158; BP diastolic 53–71; PULSE 75–105; RESP 1–27; O2SAT 91–97
[2022-05-13 04:29] LABS: Add Manual Diff / Slide Review NO; Basophils Absolute Auto 0 /uL (0-100); Basophils Percent Auto 0.5 % (0-2); Eosinophils Absolute Auto 0 /uL (0-450); Eosinophils Percent Auto 0.7 % (2-4); Hematocrit 37.2 % (36-46); Hemoglobin 12.5 g/dL (12.0-16.0); Lymphocytes Absolute Auto 1300 /uL (1100-4500); Lymphocytes Percent Auto 26.8 % (25-40); Mean Corpuscular HGB Conc 33.5 % (30-36); Mean Corpuscular Hemoglobin 30.2 PG (26-34); Mean Corpuscular Volume 90.3 fL (80-100); Monocytes Absolute Auto 500 /uL (0-900); Monocytes Percent Auto 11.3 % (3-14); Neutrophils Absolute Auto 2900 /uL (1500-7000); Neutrophils Percent Auto 60.7 % (50-75); Platelet Count 147 X10^3/uL (150-400); Red Blood Cell Count 4.12 X10^6/uL (4.0-5.2); Red Cell Distribution Width 14.9 % (11.6-14.8); White Blood Cell Count 4.7 X10^3/uL (4.5-11.0)
[2022-05-13 04:36] LABS: Alanine Aminotransferase 17 IU/L (<35); Albumin Globulin Ratio 1.3 (1.0-2.8); Alkaline Phosphatase 82 U/L (38-126); Aspartate Aminotransferase 19 IU/L (14-36); BUN Creatinine Ratio 26.9 (6-22); Bilirubin Total 0.6 mg/dL (0.2-1.3); Blood Urea Nitrogen 18 mg/dL (7-17); Calcium 8.5 mg/dL (8.4-10.2); Carbon Dioxide 29 mmol/L (22-32); Chloride 103 mmol/L (98-107); Estimated Glomerular Filt Rate > 60 mL/min (>60); Globulin 3.2 g/dL (1.7-4.1); Glucose 105 mg/dL (80-110); HEMOLYSIS < 15 (0-50); Potassium 3.6 mmol/L (3.4-5.1); Sodium 139 mmol/L (137-145); Total Protein 7.2 g/dL (6.3-8.2)
[2022-05-13] MEDS: DOCUSATE 100 MG CAPSULE PO (09:55)
[2022-05-13] MEDS: allopurinoL 100 MG TABLET PO (09:55)
[2022-05-13] MEDS: FISH OIL 1,000 MG CAPSULE 1000 MG PO (09:58)
[2022-05-13] MEDS: cefTRIAXone 1,000 MG in SODIUM CHLORIDE 0.9% 100 ML 200 MG IV (09:58)
[2022-05-13] MEDS: CHOLECALCIFEROL (VITAMIN D3) 400 UNIT TABLET PO (09:58)
[2022-05-13] MEDS: ASPIRIN EC 81 MG TABLET PO (09:59)
[2022-05-13] MEDS: MEMANTINE HCL 5 MG TABLET 10 MG PO ×2 (09:59→21:08)
[2022-05-13] MEDS: CALCIUM CARBONATE 500 MG TAB PO (09:59)
--- NOTE | 2022-05-13 11:00 | PT.IIE ---
Surgical History (Last Reviewed 05/12/22 @ 11:48 by Yunior Ruiz DO) Anesthesia History of breast surgery (~2010) S/P hysterectomy Medical History (Last Reviewed 05/13/22 @ 05:04 by Torey Oliver DO) Acute bronchitis Breast cancer (~2008) Cystocele Dementia (~2016) Effusion, right knee Fecal incontinence alternating with constipation Hearing loss (~1979) History of urinary incontinence (~1989) Irritable bowel syndrome (~1999) Mastitis, right, acute Measles (~1949) Multiple sclerosis (02/16/03) Mumps (~1950) Pelvic floor dysfunction in female Pessary maintenance Skin cancer (~2007) Tear of meniscus of right knee Urinary incontinence Physical Therapy Inpatient Evaluation/Re-Eval M1 PT/OT-IP Prior Functional Status Start: 05/13/22 12:48 Freq: Status: Active Protocol: Document 05/13/22 11:00 AB (Rec: 05/13/22 13:[email or web address] Medical Review Prior Functional Status Medical History Reviewed Yes Communication able to make needs known but with confusion; very [place] requiring repetions of instructions and questions Mobility and Gait pt stated that she is modified independent with all mobilities and ambulation using FWW; pt stated that she has a previous R knee injury years ago and has been using a knee brace Social History Household Members spouse Living Arrangements House Number of Floors (Floors) One Floor Number of Stairs To Enter/Railing? 2 steps to enter with L rail pt lives at [facility] Environment Standard Height Toilet,Walk in Shower Home Equipment Front Wheel Walker,Shower Seat with Backrest,Grab Bars Near Toilet,Grab Bars In Shower Additional Social History Comment per EMR: pt self catheterize M2 PT-IP Current Condition Start: 05/13/22 12:48 Freq: Status: Active Protocol: Document 05/13/22 11:00 AB (Rec: 05/13/22 13:01 AB [email or web address]) Physical Therapy Current Condition Current Condition Evaluation Date 05/13/22 Treatment Diagnosis UTI; difficulty in walking Onset Date 05/12/22 M3 PT-IP Subjective Start: 05/13/22 12:48 Freq: Status: Active Protocol: Document 05/13/22 11:00 AB (Rec: 05/13/22 13:01 AB [email or web address]) Subjective Physical Therapy Visit Type Type Initial Evaluation Visit Start Time 11:00 Visit Stop Time 11:40 Total Visit Minutes 40 Number of DB2 SYSTEMS PROGRAMMER Visits 0 Physical Therapy Visit Comments Patient Comments agreeable to do PT Therapy Pain Assessment Pain When Pain Assessed During Mobility Location Right Knee Scale Used pain scale not stated Pain Management Techniques Distraction,Modification of Treatment,Re-positioning, Timing of Activity with Medications M4 PT-IP Mobility and Gait Start: 05/13/22 12:48 Freq: Status: Active Protocol: Document 05/13/22 11:00 AB (Rec: 05/13/22 13:01 [email or web address]) PT-Bed Mobility Assessment Supine to Sit Supine to Sit Maximum Assistance,Head of Bed Elevated,Bedrails Sit to Supine Sit to Supine Maximum Assistance,Head of Bed Elevated,Bedrails PT-Transfer Assessment Sit to and From Stand Sit to and from Stand Maximum Assistance,1 Person Assistance,Use of Upper Extremities Equipment Transfer Assistive Device Gait Belt,Front Wheeled Walker Orthotic/Prosthetic Devices or Brace: No Comments Mobility Comments completed supine to sit HOB elevated max A and max cues and used bed rail to assist. pt sat on EOB min A. completed ist to stand max A and instructed to ambulate. pt attempted but unable to complete with c/o RLE pain and increase shakiness in standing. instructed to sit back on EOB. assisted back to bed max A. positioned in bed. max A. call light and table placed within reach. Gait Assessment Comments Gait Comments unable at this time PT-Balance Assessment Sitting Balance and Reactions Static Sitting Balance Ability Good Dynamic Sitting Balance Ability Fair Standing Balance and Reactions Static Standing Balance Ability Poor Dynamic Standing Balance Ability Poor Device Used FWW M5 PT-IP Objective Assessments Start: 05/13/22 12:48 Freq: Status: Active Protocol: Document 05/13/22 11:00 AB (Rec: 05/13/22 13:01 [email or web address] Orientation Orientation/Cognition Level of Alertness Confusional State Orientation Name,Month Language Function Ability Hard of Hearing Safety Awareness Decreased Safety Awareness Memory Description Short Term Impaired,Long-Term Impaired Gross Range of Motion Lower Extremity ROM Assessment Right Impaired Impairments R knee c/o pain with flexion limiting range Strength Lower Extremity Strength Assessment Right Impaired Hip 3-/5 Knee 3-/5 Muscle Tone Muscle Tone WNL Yes M6 PT-IP Treatment Start: 05/13/22 12:48 Freq: Status: Active Protocol: Document 05/13/22 11:00 AB (Rec: 05/13/22 13:01 AB [id number]) Physical Therapy Treatment Education Education Provided Safety M7 PT-IP Assessment and Plan Start: 05/13/22 12:48 Freq: Status: Active Protocol: Document 05/13/22 11:00 AB (Rec: 05/13/22 13:01 AB [id number]) PT Summary Assessment and Plan Potential Rehabilitation Potential Fair Status of Condition at Evaluation Evolving Summary Impairments Pain,ROM,Strength,Balance, Coordination,Sensation,Tone, Cognition,Bed Mobility, Transfers,Gait,Activity Tolerance Assessment Summary pt requiring max A with mobility and unable to ambulate at this time. pt stated that she uses a knee brace due to previous injury but currently knee brace is at home. pt will require SNF rehab at this time. will continue to assess progress. Goals Bed Mobility Goal Minimal Assistance Transfer Goal Minimal Assistance,Front Wheeled Walker Gait Goal Minimal Assistance,Front Wheel Walker Gait Distance 50 Other Goals improve bed mobility, transfers and ambulation using FWW 100 ft SBA up/down 2 steps L rail SBA Days to Meet Goals 10 Frequency of Treatment Frequency Of Treatment Once a Day Treatment Plan Physical Therapy Treatment Plan Bed Mobility Training,Transfer Training,Gait Training, Therapeutic Exercise,Balance Retraining,Discharge Planning, Hot or Cold Pack,Neuromuscular Re-ed,Coordination Retraining ,Manual Therapy Precautions Other Precautions falls Recommendations To Nursing Amount of Assist Needed 2 Person Assist Discharge Recommendations PT Discharge Recommendations SNF Rehab Transportation Needs at Discharge Wheelchair/Cabulance
[2022-05-13] MEDS: ACETAMINOPHEN 325 MG TABLET 650 MG PO (11:37)
--- NOTE | 2022-05-13 12:08 | OT.IP.EVAL ---
Past Medical History (Last Reviewed 05/13/22 @ 05:04 by Torey Oliver DO) Acute bronchitis Breast cancer (~2008) Cystocele Dementia (~2016) Effusion, right knee Fecal incontinence alternating with constipation Hearing loss (~1979) History of urinary incontinence (~1989) Irritable bowel syndrome (~1999) Mastitis, right, acute Measles (~1950) Multiple sclerosis (02/16/03) Mumps (~1950) Pelvic floor dysfunction in female Pessary maintenance Skin cancer (~2007) Tear of meniscus of right knee Urinary incontinence Surgical History (Last Reviewed 05/12/22 @ 11:48 by Yunior Ruiz DO) Anesthesia History of breast surgery (~2010) S/P hysterectomy Occupational Therapy Inpatient Evaluation/Re-Eval M1 PT/OT-IP Prior Functional Status Start: 05/13/22 12:48 Freq: Status: Active Protocol: Document 05/13/22 11:42 [facility] (Rec: 05/13/22 13:34 [facility] [id number]) Medical Review Prior Functional Status Medical History Reviewed Yes Communication able to make needs known but with confusion; very [place] requiring repetitive of instructions and questions Mobility and Gait pt stated that she is modified independent with all mobilities and ambulation using FWW; pt stated that she has a previous R knee injury years ago and has been using a knee brace Activities of Daily Living and IADL's Called Pt's and states prior pt able to self cath and do her own ADL needs and mainly he was only assisting for IADL needs. Prior Functional Level (Other details) Pt not able to self cath last night and needing assist for her ADL's. Per pt has fallen 2x/wk lately and has gotten weaker and needing more assist from him. However pt's states he uses a cane himself and not able to assist pt and pt's current level too much for him to handle. Social History Household Members spouse Living Arrangements House Number of Floors (Floors) One Floor Number of Stairs To Enter/Railing? 2 steps to enter with L rail pt lives at [facility] Environment Standard Height Toilet,Walk in Shower Home Equipment Front Wheel Walker,Shower Seat with Backrest,Grab Bars Near Toilet,Grab Bars In Shower Additional Social History Comment per EMR: pt self catheterize M2 OT-IP Current Condition Start: 05/13/22 13:16 Freq: Status: Active Protocol: Document 05/13/22 11:42 [facility] (Rec: 05/13/22 13:34 [facility] [id number]) Occupational Therapy Current Condition Current Condition Evaluation Date 05/13/22 Treatment Diagnosis UTI, decreased mobility Diagnosis Onset Date 05/12/22 M3 OT- IP Subjective and Pain Start: 05/13/22 13:16 Freq: Status: Active Protocol: Document 05/13/22 11:42 [facility] (Rec: 05/13/22 13:34 [facility] [id number]) OT- Subjective Occupational Therapy Visit Type Type Initial Evaluation Visit Start Time 11:42 Visit Stop Time 12:08 Total Visit Minutes 26 Occupational Therapy Visit Comments Patient Comments Pt agreed to get up, cooperative but forgetful. Patient/Caregiver Goals To get better. OT Pain Assessment Pain When Pain Assessed At Rest Pain Present Pain Present Denied Pain M4 OT- IP ADL's Start: 05/13/22 13:16 Freq: Status: Active Protocol: Document 05/13/22 11:42 [facility] (Rec: 05/13/22 13:34 [facility] [id number]) OT [id number] Comments OT Self-Feeding Comments Not at meal time. OT ADL-Grooming Comments OT Grooming Comments Not performed. OT ADL-Oral Care Comments Oral Care Comments Not performed. OT ADL-Dressing General Eval Lower Body Dressing Ability Maximum Assistance Comments OT Dressing Comments Assist to isaiah/doff socks and get her brief in place while in supine. OT ADL-Toileting General Evaluation Toileting Ability Total Assistance Comments OT Toileting Comments [place] in place OT ADL-Bathing Bathing Type Bathing Type Sponge Bath Comments OT Bathing Comments Sponge bath more appropriate at this time. M5 OT- IP IADL's Start: 05/13/22 13:16 Freq: Status: Active Protocol: Document 05/13/22 11:42 [facility] (Rec: 05/13/22 13:34 [facility] [id number]) OT-Instrumental Activities of Daily Living Deficits IADL Deficits Identified Deficits Home Safety Awareness Awareness of Need for Assistance at Home Decreased Awareness Ability to Problem Solve Emergency Unable to Problem Solve Situations Medication Management Medication Management Caregiver Administers Money Management Money Management Caregiver Provides Assistance Meal Preparation Meal Preparation Caregiver Provides Assist Teaching Manager Teaching Manager Caregiver Provides Assist Driving Driving Caregiver Provides Assist M6 OT- IP Functional Cognition Start: 05/13/22 13:16 Freq: Status: Active Protocol: Document 05/13/22 11:42 [facility] (Rec: 05/13/22 13:34 [facility] [id number]) Cognitive Factors Limiting Selfcare Function Cognitive Ability Level of Alertness Alert Patient Orientation Name,Month,Place,Situation Attention Span Ability Capable of Focused Attention, Unable to Sustain Attention Ability to Follow Commands Able to Follow One Step Commands with Increased Time, Able to Follow One Step Commands with Repetition Memory Description Short Term Impaired,Working Impaired Cognitive Comments Cognitive Assessment Comments Pt forgetting that the catheter in place and also forgetting that the PT just worked with her a few minutes before. OT- Vision and Hearing OT- Hearing Assessment OT- Hearing Assessment Use of Hearing Aids M7 OT- IP Mobility and Balance Start: 05/13/22 13:16 Freq: Status: Active Protocol: Document 05/13/22 11:42 [facility] (Rec: 05/13/22 13:34 [facility] [id number]) OT- Bed Mobility Assessment Supine to Sit Supine to Sit Assist Maximum Assistance,1 Person Assistance Sit to Supine Sit to Supine Assist Maximum Assistance,1 Person Assistance Scooting Scooting to Edge of Bed Maximum Assistance,1 Person Assistance OT-Transfer Assessment Sit to and From Stand Sit to and from Stand Moderate Assistance,Maximum Assistance,1 Person Assistance Comments Mobility Comments MAX A for bed mobility and MOD /MAXAx1 to stand with FWW and able to take a few side steps to the head fo the bed with MAX Ax1. Pt states has a knee brace at home. OT- Gait Assessment Comments Gait Ability Comments Pt unable to walk at this time but able to take a few side steps to the head of the bed. OT- Balance Assessment Sitting Balance and Reactions Static Sitting Balance Ability Fair Dynamic Sitting Balance Ability Poor Standing Balance and Reactions Static Standing Balance Ability Poor Dynamic Standing Balance Ability Poor M8 OT- IP Objective Assessments Start: 05/13/22 13:16 Freq: Status: Active Protocol: Document 05/13/22 11:42 [facility] (Rec: 05/13/22 13:34 [facility] [id number]) OT Strength Comments Strength Comments BUE 4-/5 to 4/5 from proximal to distal OT- Coordination Assessment Upper Extremity Finger to Nose Test Within Functional Limits OT-Muscle Tone Assessment Muscle Tone WNL Yes M9 OT- IP Assessment and Plan Start: 05/13/22 13:16 Freq: Status: Active Protocol: Document 05/13/22 11:42 [facility] (Rec: 05/13/22 13:38 [facility] [id number]) OT Summary Assessment and Plan Potential Rehabilitation Potential Fair Analytic Complexity at Evaluation Low Summary OT Impairments Pain,Balance,Functional Cognition,Functional Mobility, Grooming,Dressing,Toileting, Bathing,Toilet Transfers, Shower Transfers,Activity Tolerance Progress Towards Goals Slow Progress due to Medical Issues,Slow Progress due to Activity Tolerance,Slow Progress due to Cognition Assessment Summary Pt low complexity and main barriers are decreased activity tolerance, balance, and now needing extensive MAX A for dressing, toileting and mobility needs. Pt is not at her baseline of being mostly SBA for need with occasional ELVA for ADl needs. Pt will greatly benefit from skilled rehab to maximize her level of independence or would benefit from more assist, hired assist at home or possibly assisted or LTC. Goals Self-Feeding Goal Standby Assistance Grooming Goal Standby Assistance Dressing Goal Standby Assistance Toileting Goal Standby Assistance Bathing Goal Minimal Assistance Toilet Transfer Goal Standby Assistance Shower Transfer Goal Contact Guard Assistance Days to Meet Goals 25 Frequency of Treatment Frequency Of Treatment Once a Day Treatment Plan OT Treatment Plan ADL Training,Functional Cognition Training,Functional Mobility,Patient/Family Education,Discharge Planning Discharge Recommendations OT Discharge Recommendations Home with 14/12 Assist Available,SNF Rehab,LTAC Transportation Needs at Discharge Wheelchair/Cabulance
--- NOTE | 2022-05-13 12:37 | CM.SWNOTE ---
Addendum entered by KJ Michel 05/13/22 16:36: ADD: [facility] reviewed and could likely accept but cannot start on auth today. [facility] states they can accept and willing to submit auth today. SW called spouse and updated on above and he is really appreciative. Answered some of his questions and discussed the need to still have insurance auth SNF. Spouse acknowledges understanding. SW updated ED MD and ED RN. Plan: SW to follow in the AM with [facility] on when they get determination from [employer] on SNF auth and private pay SNF as a back up if insurance denies covering SNF. KJ Michel Addendum entered by KJ Michel 05/13/22 14:24: ADD: Return msg from pt's JOSEPH Amador stating she is just now updating pt's level of need assessment and would appreciate clinicals faxed so that she can use these in pt's assessment and [facility] kindly faxed to [phone] and pt's currently daily rate for [facility] is $116 daily rate. Marjorie states she has been talking to spouse about LTC placement for a while and states initially it was that spouse wanted to find placement where he could live with pt but now aware that is not a feasible option for placement. Marjorie will continue working on updating assessment and placement. COBY spoke to [facility] Adilia who is willing to review pt and then if pt is an appropriate fit she will work with [facility] on seeing if insurance auth could be submitted today. BF Original Note: Patient is an 82 yo female who was admitted to [facility] ED on 05/12/22 for UTI/PNE. Pt has [employer] M[employer] and JONO and her PCP is Dr. Ted Ruiz. EMR was reviewed. LIVING COACH Consult placed by ED MD as pt does not have an admittable medical dx to the hospital but unsafe to return home at this time and PCP recommending SNF rehab. Pt had seen PCP yesterday for 2 hours and felt pt should come to the ER and told spouse ideally pt would be admitted for 3 nights and then go to SNF rehab under insurance and then likely need ongoing work on LTC placement. COBY attempted to meet bedside with pt who is [facility] and has dementia and pt was able to participate in discussion and provide some accurate information but a poor historian. Pt pleasantly confused, no dementia behaviors, no exit seeking or attempting to get OOB. Pt confirms that she lives on [place] for many years with her Edwardo and states he is in charge of their finances and they own a bookstore. Pt states she has 3 adult children but does not think they live locally. SW inquired with pt about safe d/c home vs SNF and pt states she would defer that to her . SW finally able to get ahold of spouse Edwardo who is home but home number you cannot leave a message but has a cell phone that spouse states he checks messages on if he misses the call. Spouse confirms that pt has been to SNF before but its been quite a few years now and that pt is approved for [facility] with 212 hours a month and just had JOSEPH IZQUIERDO in their home last week to complete annual assessment update. JOSEPH IZQUIERDO is Marjorie out of the [place] office at [phone]. Spouse states he is pt's [facility] and is 80 yo himself and is having a harder time managing pt at home and aware that pt will need LTC under her Medicaid as they do not have finances to pay privately initially. Does not sound that LTC placement attempts at [facility] or [facility] have been pursued thoroughly yet. SW called JOSEPH Amador and left msg updating on pt's admission and inquiring if LTC assessment has been completed with a daily rate yet? If not requested urgent work on this and LTC placement attempts to begin happening now. SW discussed at length with spouse that unfortunately PCP likely not aware of the criteria needed for admission to the hospital, the challenge with need for [employer] auth for SNF and if pt is more Rehab or retirement and need to find a contracted SNF facility with [employer], etc. Spouse somewhat seems to understand but seems to feel that between PCP, [facility], and SW that we can talk insurance into SNF. SW discussed if insurance does not auth SNF, the other options would be privately paying or pt coming home with HH. Spouse states he would be agreeable to Private Pay SNF for a short time if auth not obtained. SW provided SNF Choice List via phone and discussed need for contracted [employer] facility and open bed and spouse understands and states if he has his preference choice would be [facility] due to location. SW called [facility], [facility], [facility] and [facility] and requested [facility] send new referral. Per PT/OT, pt seems below baseline and would recommend SNF at d/c. COBY updated ED RN and ED scrap drop engineer and discussed may take up to 48 hours to get insurance auth determination. COBY called Dr. Ruiz's office and left msg with RN updating him on the barriers to coming to the hospital and admission and SNF needs. PASRR completed in anticipation of possible SNF. Plan: COBY to follow closely for [facility], [facility], [facility], [facility] review to determine if any can accept and initiate insurance auth. KJ Michel
[2022-05-13] MEDS: DONEPEZIL 5 MG TABLET 10 MG PO (21:08)
[2022-05-13] MEDS: GABAPENTIN 100 MG CAPSULE PO (21:08)
[2022-05-14] VITALS (29 sets, daily range): BP systolic 98–135; BP diastolic 50–65; PULSE 68–94; RESP 11–24; O2SAT 90–95
[2022-05-14] MEDS: ASPIRIN EC 81 MG TABLET PO (08:37)
[2022-05-14] MEDS: cefTRIAXone 1,000 MG in SODIUM CHLORIDE 0.9% 100 ML 200 MG IV (08:38)
[2022-05-14 09:32] LABS: COVID19 -Nasal RAPID Negative (Negative)
[2022-05-14] MEDS: MEMANTINE HCL 5 MG TABLET 10 MG PO (10:12)
[2022-05-14] MEDS: FISH OIL 1,000 MG CAPSULE 1000 MG PO (10:12)
[2022-05-14] MEDS: PANTOPRAZOLE DR 40 MG TABLET PO (10:13)
[2022-05-14] MEDS: allopurinoL 100 MG TABLET PO (10:13)
[2022-05-14] MEDS: CHOLECALCIFEROL (VITAMIN D3) 400 UNIT TABLET PO (10:14)
[2022-05-14] MEDS: CALCIUM CARBONATE 500 MG TAB PO (10:15)
[2022-05-14] MEDS: DOCUSATE 100 MG CAPSULE PO (10:15)
--- NOTE | 2022-05-14 10:40 | CM.DPNOTE ---
Called for BLS pickup per Ce. [facility] could not accommodate. Meaghan from [facility] said they could pick pt. up at about 1330 to [facility]. I accepted this. Ny Lemus CM Assist.
--- NOTE | 2022-05-14 11:07 | CM.SWNOTE ---
ED SW Note Patient is an 82 yo female who was admitted to [facility] ED on 05/12/22 for UTI/PNE. Pt has [facility] MCR and JONO and her PCP is Dr. Ted Ruiz. EMR was reviewed. REGISTERED NURSE FETAL Consult placed by ED MD as pt does not have an admittable medical dx to the hospital but unsafe to return home at this time and PCP recommending SNF rehab. Pt was accepted at [facility], who can accept pt today. BLS ambulance scheduled for 1:30pm. SW faxed discharge summary, PASRR, and negative covid to Bushra at [facility]. Plan: Pt will discharge to [facility] today at 1:30pm via BLS ambulance. KJ Morillo
--- NOTE | 2022-05-14 13:56 | PC.NURSE ---
I gave report to Alhaji from [facility]. I gave report to Lara at [facility].
--- NOTE | 2022-05-14 15:45 | OT.IPNOTE ---
Pt discharged to SNF
== END 2022-05-14 13:58 ==
PROVIDERS: Emergency Medicine; Emergency Provider Emergency Medicine; Family Provider Family Medicine; PCP Family Medicine
DX: N39.0 Urinary tract infection, site not specified (principal); F03.90 Unspecified dementia, unspecified severity, without behavioral disturbance, psychotic disturbance, mood disturbance, and anxiety; R41.0 Disorientation, unspecified; R50.9 Fever, unspecified; Z20.822 Contact with and (suspected) exposure to COVID-19; Z79.899 Other long term (current) drug therapy
CPT/HCPCS: 0241U; 36415; 71045; 80053; 81001; 81002; 82550; 83605; 83690; 83880; 84145; 84484; 85025; 85610; 85730; 87040; 87077; 87086; 87186; 87635; 93005; 96361; 96365; 96366; 96375; 97162; 99285; C9803; A9270; J0696

== ENCOUNTER 2024-12-01 13:25 | Day surgery (SDC) | payer MEDICARE, MEDICAID, SELFPAY ==
[2024-11-23 13:57] VITALS: BMI 23.9
[2024-12-01 14:07] VITALS: BP 138/65; PULSE 68; RESP 20; TEMP 36.3; O2SAT 97; BMI 23.9
[2024-12-01] MEDS: LACTATED RINGERS 1,000 ML 42 ML IV (14:10)
--- NOTE | 2024-12-01 14:33 | PM.GYNHP.1 ---
History of Present Illness History of Present Illness Narrative: Bri Martins is a 84 year old female 3 para 3 with prolapse requiring a pessary. At her last pessary check the pessary was coated and ?sharp crystal's? and the pessary and Crystal's are stuck to the vaginal wall. Patient could not tolerate removal in the office. [facility] Medical History (Updated 12/03/23 @ 12:55 by Stacy Hopkins MD) Urinary incontinence Acute bronchitis Fecal incontinence alternating with constipation Cystocele Pelvic floor dysfunction in female Mastitis, right, acute Tear of meniscus of right knee Effusion, right knee Dementia (~2016) Mumps (~1950) Measles (~1949) Hearing loss (~1979) History of urinary incontinence (~1989) Irritable bowel syndrome (~1999) Skin cancer (~2007) Breast cancer (~2008) Multiple sclerosis (02/16/03) Surgical History Anesthesia History of breast surgery (~2010) S/P hysterectomy Family History Brother Bowel obstruction Family/Other No problems noted. Social History marital status: household members: other occupational status: previously employed Smoking Status: Never smoker alcohol intake: former Meds Home Medications and Allergies Home Medications ?Medication ?Instructions ?Recorded ?Confirmed ?Type aspirin 81 mg tablet,delayed 81 mg PO QDAY ##0 11/05/16 12/01/24 History release oxyquinoline 0.025 %-sodium lauryl 1 ea vaginal .weekly pessary 06/18/20 12/01/24 Rx sulfate 0.01 % vaginal gel maintenance #113.4 grams memantine 10 mg tablet 10 mg PO BID 03/05/21 12/01/24 History Booster-Total Dry Pads #1 ea 07/14/21 06/02/24 Rx trospium 20 mg tablet 20 mg PO BIDAC #60 tabs 09/03/21 12/01/24 Rx donepezil 10 mg tablet 10 mg PO DAILY #90 tabs 12/03/21 12/01/24 Rx allopurinol 100 mg tablet 100 mg PO DAILY #14 tabs 01/23/22 12/01/24 Rx docusate sodium 100 mg capsule 100 mg PO DAILY #90 caps 03/25/22 12/01/24 Rx (Colace) calcium carbonate 500 mg PO DAILY 05/12/22 12/01/24 History cholecalciferol (vitamin D3) 10 10 mcg PO DAILY 05/12/22 12/01/24 History mcg (400 unit) capsule gabapentin 100 mg capsule 100 mg PO DAILY 05/12/22 12/01/24 History mirabegron 50 mg tablet,extended 50 mg PO DAILY 05/12/22 12/01/24 History release 24 hr (Myrbetriq) omega-3 fatty acids 1 cap PO DAILY 05/12/22 12/01/24 History Allergies Allergy/AdvReac Type Severity Reaction Status Date / Time Penicillins (PENICILLINS) Allergy Mild RASH Verified 12/01/24 14:11 indomethacin AdvReac Severe do not Verified 12/01/24 14:11 dispense codeine AdvReac Unknown drowsiness Verified 12/01/24 14:11 cortisone AdvReac Unknown hives Verified 12/01/24 14:11 Exam Vital Signs (past 8 hours): - 12/01/24 14:07 Temperature 97.3 F L Pulse Rate 68 Respiratory Rate 20 Blood Pressure 138/65 Pulse Oximetry 97 Oxygen Delivery Method Room Air Oxygen Delivery Method Room Air Narrative Exam Narrative: Generally: An elderly female, hard of hearing, with dementia, no acute distress HEENT: No thyromegaly, no anterior cervical or supraclavicular lymphadenopathy. Lungs:Clear to auscultation bilaterally, no wheezes. Cardiovascular: Regular rate and rhythm, no murmurs, rubs, or gallops. Abdomen: No scars. No hepatosplenomegaly. No masses palpable. External genitalia: Deferred to OR Vagina: Deferred to OR Cervix: Absent Extremities: Moderate edema Assessment & Plan Assessment & Plan narrative: Assessment: 84-year-old 3 para 3 with vaginal prolapse Pessary in place with crystals stuck to the pessary and vaginal wall Unable to remove the pessary in the office due to patient's discomfort Plan: Examination under anesthesia Removal of pessary and crystals Possible colpocleisis The risks, benefits, and alternatives to the procedure were explained to the patient, her , and her son Antolin. The risks including bleeding, infection, and injury to the ureter. She understands these risks and agrees to proceed. A full par Q was held and consent form was signed. Time-Based Coding :: [TOTAL MINUTES] spent with patient and on the chart (including review of chart, obtaining history, exam, reviewing outside data, placing orders, documenting exam and treatment plan, and counseling patient) on [DATE].
--- NOTE | 2024-12-01 14:38 | PM.PREOP ---
Pre-operative Note Interval Note History & Physical reviewed/Exam performed by Physician: Yes Changes to H&P: No H&P completed within 30 days and has changed as indicated here:: 12/01/24
[2024-12-01] MEDS: CEFAZOLIN 2 GM/100 ML PREMIX 100 ML IV (15:00)
--- NOTE | 2024-12-01 15:04 | SUR.OPER ---
Lithotomy on padded OR bed, head on pillow, arms secured on padded arm boards at <90 degrees abduction. Legs secured in padded yellow fins stirrups.
--- NOTE | 2024-12-01 15:04 | SUR.OPER ---
RING TAPED, HEARING AIDS REMOVED AND GIVEN TO
[2024-12-01 15:19] VITALS: BP 125/58; PULSE 63; RESP 20; TEMP 36.2; O2SAT 100
[2024-12-01 15:24] VITALS: BP 134/65; PULSE 64; RESP 20; O2SAT 100
--- NOTE | 2024-12-01 15:31 | SUR.OPER ---
TRIAM-CONNELLY GEL HYDROXYQUINOLINE SULFATE GEL - FROM SURGEON'S OFFICE; GENEROUS AMOUNT APPLIED; REMAINDER OF TUBE SENT HOME WITH PATIENT FAMILY
[2024-12-01 15:35] VITALS: BP 131/63; PULSE 64; RESP 19; TEMP 36.2; O2SAT 100
[2024-12-01 15:47] VITALS: BP 132/64; PULSE 65; RESP 21; O2SAT 100
--- NOTE | 2024-12-01 15:52 | PM.GYNOP.1 ---
Operative Date/Time/Diagnoses Date of procedure: 12/01/24 Time of procedure: 15:52 Pre-op diagnosis: Unable to remove pessary in office due to patient discomfort and pessary adhesed to vaginal dugan with crystals Post-op diagnosis: same Procedure & Clinicians Procedure: Procedures Operation Date: 12/01/24 14:30 Actual Procedure Side Surgeon p removal of pessary Not Applicable Susan Mitchell MD EUA, removal of pessary Indications: 84 year old with pessary that is stuck to the vaginal dugan with crystals, and unable to remove in the office due to discomfort Surgeon: Susan Mitchell Anesthesia Type: General Operative Notes Findings: #4 ring support with knob pessary stuck circumferentially to the vaginal dugan Thick, sharp crystals stuck to the pessary and the vaginal dugan Macerated vaginal dugan after the pessary was removed Closure Type: not applicable Specimen(s): none Applied: none Estimated blood loss (mL): 0 Blood products transfused: none Procedure in detail: After informed consent was obtained from the and son of the patient, she was taken to the operating room and placed in the dorsal supine position. After LMA general anesthesia was obtained, the patient was placed in the dorsal lithotomy position. Using surgilube, the pessary was removed with some difficulty by peeling it off of the vaginal dugan. The crystals were also removed from the vaginal dugan. The pessary was malodorous and bloody. The vagina was inspected and the dugan were macerated where they were touched by the pessary and crystals. The vagina was irrigated extensively. The vaginal dugan were cleaned with betadine. Trimosan gel was then placed into the vagina. Sponge, lap and instrument counts were correct x2. The patient tolerated the procedure well and was taken to PACU in stable condition. Complications: none Post-operative Condition: stable Disposition: PACU Plan for aftercare: To [facility] after recovery
== END 2024-12-01 15:58 | disposition home or self-care (01) ==
LOC: OR 13:27 → AC 13:27
PROVIDERS: Family Provider Family Medicine; PCP Family Medicine; Referring Provider Obstetrics & Gynecology; Visit Provider Obstetrics & Gynecology
PROC: (CPT 57120; principal; 2024-12-01 14:30)
DX: T83.721A Exposure of implanted vaginal mesh into vagina, initial encounter (principal)
CPT/HCPCS: 58999; J0690; J1100; J2405; J2704; J3010

== ENCOUNTER → 2025-02-02 11:13 | Outpatient (CLI) | payer MEDICARE, MEDICAID, SELFPAY | PROVIDERS: Family Provider Family Medicine; PCP Physician Assistant Medical; Visit Provider Physician Assistant Medical | DX: M62.89 Other specified disorders of muscle (principal); R39.81 Functional urinary incontinence | CPT/HCPCS: 87077; 87086; 87186 ==

== ENCOUNTER → 2025-02-13 10:44 | Outpatient (CLI) | payer MEDICARE, MEDICAID, SELFPAY ==
[2025-02-13 18:57] LABS: Add Manual Diff / Slide Review NO; Hematocrit 40.4 % (36-46); Hemoglobin 13.8 g/dL (12.0-16.0); Lymphocytes Absolute Auto 1300 /uL (1100-4500); Mean Corpuscular HGB Conc 34.2 % (30-36); Mean Corpuscular Hemoglobin 30.5 PG (26-34); Mean Corpuscular Volume 89.2 fL (80-100); Platelet Count 224 X10^3/uL (150-400)
[2025-02-13 19:14] LABS: Alanine Aminotransferase 22 IU/L (<35); Albumin 4.7 g/dL (3.5-5.0); Albumin Globulin Ratio 1.4 (1.0-2.8); Alkaline Phosphatase 99 U/L (38-126); Blood Urea Nitrogen 18 mg/dL (7-17); Calcium 9.8 mg/dL (8.4-10.2); Carbon Dioxide 24 mmol/L (22-32); Chloride 101 mmol/L (98-107); Cholesterol 233 mg/dL (140-199); Estimated Glomerular Filt Rate 57 mL/min (>60); Globulin 3.3 g/dL (1.7-4.1); Glucose 88 mg/dL (70-99); HDL Cholesterol 64 mg/dL (40-60); HEMOLYSIS < 15 (0-50); Hemoglobin A1C% w Est Avg Glu 5.6 % (4.0-6.0); Potassium 4.6 mmol/L (3.4-5.1); Sodium 135 mmol/L (137-145); Total Protein 8.0 g/dL (6.3-8.2); Triglycerides 142 mg/dL (35-150)
[2025-02-13 19:46] LABS: TSH w/ Reflex to FT4 1.45 uIU/mL (0.47-4.68)
== END ==
PROVIDERS: Family Provider Family Medicine; PCP Physician Assistant Medical; Visit Provider Physician Assistant Medical
DX: R39.81 Functional urinary incontinence (principal); M81.0 Age-related osteoporosis without current pathological fracture; Z13.220 Encounter for screening for lipoid disorders; Z13.29 Encounter for screening for other suspected endocrine disorder; Z13.0 Encounter for screening for diseases of the blood and blood-forming organs and certain disorders involving the immune mechanism; Z13.228 Encounter for screening for other metabolic disorders; M62.89 Other specified disorders of muscle; R53.81 Other malaise; G35 Multiple sclerosis; H91.90 Unspecified hearing loss, unspecified ear; N39.0 Urinary tract infection, site not specified
CPT/HCPCS: 80053; 80061; 83036; 84443; 85025; 87077; 87086; 87186